=== PATIENT | female | born 1960 | race Caucasian/White ===

== ENCOUNTER 2020-02-15 10:02 | Outpatient (CLI) | payer MEDICARE, SELFPAY ==
--- NOTE | ~2020-02-15 | MM_ITS ---
EXAMINATION: MM screening gayathri BI w nayan HISTORY: Screening mammogram TECHNIQUE: Craniocaudal and mediolateral oblique 3-D tomosynthesis images were obtained and synthetic 2-D images were generated. CAD analysis was submitted and interpreted. COMPARISON: No prior mammogram is available for comparison at this institution. BREAST PARENCHYMAL COMPOSITION: There are scattered areas of fibroglandular density. FINDINGS: There is no evidence of suspicious mass, calcification, or architectural distortion to sugg est malignancy in either breast. IMPRESSION: 1. No mammographic evidence of malignancy. 2. Recommend routine screening mammography in one year. BI-RADS Category 1: Negative Reviewed, dictated and finalized at location A. 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
== END 2020-02-15 10:03 | disposition home or self-care (01) ==
LOC: ANHIMG 10:21
PROVIDERS: PCP Internal Medicine; Visit Provider Obstetrics & Gynecology
DX: Z12.31 Encounter for screening mammogram for malignant neoplasm of breast (principal)
CPT/HCPCS: 77063; 77067

== ENCOUNTER 2021-04-24 00:42 | Day surgery (SDC) | payer MEDICARE, SELFPAY ==
[2021-04-14 14:05] VITALS: BMI 36.8
--- NOTE | 2021-04-23 16:25 | PM.HPGS ---
History of Present Illness History of Present Illness Consent: Risks, benefits, and alternatives have been discussed and questions answered. Patient agrees to proceed with procedure. Chief complaint: neoplasm screening Narrative: [place] Gongora is a 60 year old female referred for colon cancer screening Review of Systems Review of Systems: All systems reviewed & are unremarkable except as noted in HPI and below PMFSH Social History Social History Smoking status: Never smoker Alcohol intake: never Substance use: never Substance use type: does not use Living arrangements: with family Spiritual care concerns: No Meds Home Medications and Allergies Home Medications Medication Instructions Recorded Confirmed Type sod picosulf 10 mg-magnes 3.5 160 ml PO DAILY #320 ml 03/20/21 Rx gram-citric 12 gram/160 mL oral solution atorvastatin 10 mg PO DAILY 04/14/21 04/14/21 History bupropion HCl 300 mg PO DAILY 04/14/21 04/14/21 History calcitriol 0.5 mcg PO DAILY 04/14/21 04/14/21 History ergocalciferol (vitamin D2) 50,000 unit PO [id number] 04/14/21 04/14/21 History levothyroxine 75 mcg PO DAILY 04/14/21 04/14/21 History lisinopril 5 mg PO DAILY 04/14/21 04/14/21 History lorazepam 0.5 mg PO BID PRN 04/14/21 04/14/21 History metformin 500 mg PO TID 04/14/21 04/14/21 History metoprolol succinate 50 mg PO BID 04/14/21 04/14/21 History pantoprazole 40 mg PO DAILY 04/14/21 04/14/21 History paroxetine HCl 20 mg PO DAILY 04/14/21 04/14/21 History pregabalin 150 mg PO TID 04/14/21 04/14/21 History trazodone 100 mg PO DAILY 04/14/21 04/14/21 History Allergies Allergy/AdvReac Type Severity Reaction Status Date / Time amitriptyline Allergy Severe JERKING Verified 04/24/21 09:44 cefaclor Allergy Severe hives Verified 04/24/21 09:44 ibuprofen Allergy Severe ITCHING Verified 04/24/21 09:44 ketamine Allergy Severe JERKING Verified 04/24/21 09:44 midazolam Allergy Severe JERKING Verified 04/24/21 09:44 propofol Allergy Severe JERKING Verified 04/24/21 09:44 pseudoephedrine Allergy Severe ITCHING Verified 04/24/21 09:44 sulfamethoxazole Allergy Severe HIVES Verified 04/24/21 09:44 trimethoprim Allergy Severe HIVES Verified 04/24/21 09:44 Exam Resp: Auscultation: clear to auscultation bilaterally Cardio: Rate: regular rate Rhythm: regular rhythm GI: GI Palp: Yes Soft to palpation and No Tenderness to palpation present (GI) Assessment and Plan Assessment and plan (1) Colon cancer screening: Code(s): Z12.11 - Encounter for screening for malignant neoplasm of colon Status: Acute Assessment and Plan: Colonoscopy with possible biopsy or polypectomy or cautery or injection of substances.
[2021-04-24 09:41] VITALS: BP 144/71; PULSE 59; RESP 20; TEMP 36.4; O2SAT 96
[2021-04-24 10:04] LABS: Glucose Point of Care 190 mg/dl (65-105)
[2021-04-24] MEDS: LACTATED RINGERS 1,000 ML 150 ML IV CONT (10:04)
--- NOTE | 2021-04-24 10:09 | WPDANESEPPF ---
Anes - Initial Pre Proc Eval Procedure: Operation Date: 04/24/21 10:30 Proposed Procedures p Screening Colonoscopy - Dionicio Hernandez MD Date/Time: 04/24/21 10:09 Surgeon: Dionicio Hernandez MD Pre Op Diagnosis: neoplasm screening Patient Data Age: 60 Gender: F Height: 1.68 m Weight: 104.8 kg Last Vital Signs Temp 36.4 C 04/24/21 09:41 Pulse 59 L 04/24/21 09:41 Resp 20 04/24/21 09:41 BP 144/71 H 04/24/21 09:41 Pulse Ox 96 04/24/21 09:41 Allergies Allergy/AdvReac Type Severity Reaction Status Date / Time amitriptyline Allergy Severe JERKING Verified 04/24/21 09:44 cefaclor Allergy Severe hives Verified 04/24/21 09:44 ibuprofen Allergy Severe ITCHING Verified 04/24/21 09:44 ketamine Allergy Severe JERKING Verified 04/24/21 09:44 midazolam Allergy Severe JERKING Verified 04/24/21 09:44 propofol Allergy Severe JERKING Verified 04/24/21 09:44 pseudoephedrine Allergy Severe ITCHING Verified 04/24/21 09:44 sulfamethoxazole Allergy Severe HIVES Verified 04/24/21 09:44 trimethoprim Allergy Severe HIVES Verified 04/24/21 09:44 Home Medications Medication Instructions Recorded Confirmed Type sod picosulf 10 mg-magnes 3.5 160 ml PO DAILY #320 ml 03/20/21 Rx gram-citric 12 gram/160 mL oral solution atorvastatin 10 mg PO DAILY 04/14/21 04/14/21 History bupropion HCl 300 mg PO DAILY 04/14/21 04/14/21 History calcitriol 0.5 mcg PO DAILY 04/14/21 04/14/21 History ergocalciferol (vitamin D2) 50,000 unit PO [id number] 04/14/21 04/14/21 History levothyroxine 75 mcg PO DAILY 04/14/21 04/14/21 History lisinopril 5 mg PO DAILY 04/14/21 04/14/21 History lorazepam 0.5 mg PO BID PRN 04/14/21 04/14/21 History metformin 500 mg PO TID 04/14/21 04/14/21 History metoprolol succinate 50 mg PO BID 04/14/21 04/14/21 History pantoprazole 40 mg PO DAILY 04/14/21 04/14/21 History paroxetine HCl 20 mg PO DAILY 04/14/21 04/14/21 History pregabalin 150 mg PO TID 04/14/21 04/14/21 History trazodone 100 mg PO DAILY 04/14/21 04/14/21 History Laboratory Tests 04/24/21 09:58 POC Capillary Glucose 190 mg/dl H mg/dl (65-105) Patient hx anesthesia problems: other (negative response to ketamine) Family hx anesthesia problems: none Results Review: All pre-operative results and documents have been reviewed as part of the pre-operative evaluation. [facility] Past Medical History Medical History Anxiety Diabetes Fibromyalgia Hypothyroid Social History Social History Smoking status: Never smoker Alcohol intake: never Substance use: never Substance use type: does not use Living arrangements: with family Spiritual care concerns: No Anes - Eval Final PreProcedure Day of Procedure 04/24/21 10:09 Patient weight: obese Heart: regular rate and rhythm Lungs: clear to auscultation Airway: Mallampati scale class II Neurological: alert and oriented Last oral intake: >/= 8 hours ASA classification: III Emergent: no Anesthetic plan: proceed Anesthesia type and monitoring: general GIVS and standard monitoring Results Review: All pre-operative results and documents have been reviewed as part of the pre-operative evaluation. Informed Consent: The patient's anesthetic plan and its attendant risks and benefits were discussed with the patient/family/POA. Questions were solicited and answers provided to the satisfaction of the patient/family/POA.
[2021-04-24 10:47] VITALS: BP 119/61; PULSE 60; RESP 19; O2SAT 95
[2021-04-24 10:57] VITALS: BP 90/67; PULSE 60; RESP 21; O2SAT 96
[2021-04-24 11:07] VITALS: BP 129/69; PULSE 60; RESP 17; O2SAT 94
== END 2021-04-24 11:37 | disposition home or self-care (01) ==
PROVIDERS: PCP Internal Medicine; Visit Provider Internal Medicine Gastroenterology
PROC: 0DJD8ZZ Inspection of Lower Intestinal Tract, Via Natural or Artificial Opening Endoscopic (ICD-10-PCS; CPT 45378; principal; 2021-04-24 10:30)
DX: Z12.11 Encounter for screening for malignant neoplasm of colon (principal); K63.3 Ulcer of intestine; K50.00 Crohn's disease of small intestine without complications; K52.9 Noninfective gastroenteritis and colitis, unspecified; Z98.0 Intestinal bypass and anastomosis status; Z90.49 Acquired absence of other specified parts of digestive tract; E11.9 Type 2 diabetes mellitus without complications; E03.9 Hypothyroidism, unspecified; M79.7 Fibromyalgia; F41.9 Anxiety disorder, unspecified; Z79.84 Long term (current) use of oral hypoglycemic drugs; E66.9 Obesity, unspecified; Z68.37 Body mass index [BMI] 37.0-37.9, adult
CPT/HCPCS: 45380; 82948; 88305; J2704; J7120

== ENCOUNTER 2021-10-19 14:13 | Outpatient (CLI) | payer MEDICARE, SELFPAY ==
--- NOTE | ~2021-10-19 | MM_ITS ---
EXAMINATION: MM screening gayathri BI w nayan HISTORY: Screening TECHNIQUE: Craniocaudal and mediolateral oblique 3-D tomosynthesis images were obtained and synthetic 2-D images were generated. CAD analysis was submitted and interpreted. COMPARISON: 02/15/2020 BREAST PARENCHYMAL COMPOSITION: Breast composed of scattered areas of fibroglandular density FINDINGS: There is no evidence of suspicious mass, calcification, or architectural distortion to sugg est malignancy in either breast. There has been no suspicious interval change. IMPRESSION: 1. No mammographic evidence of malignancy. 2. Recommend routine screening mammography in one year. BI-RADS Category 1: Negative Reviewed, dictated and finalized at location A.
== END 2021-10-19 14:14 | disposition home or self-care (01) ==
LOC: ANHIMG 14:17
PROVIDERS: PCP Internal Medicine; Visit Provider Obstetrics & Gynecology
DX: Z12.31 Encounter for screening mammogram for malignant neoplasm of breast (principal)
CPT/HCPCS: 77063; 77067

== ENCOUNTER 2022-07-14 17:57 | Emergency (ER) | payer MEDICARE, SELFPAY ==
--- NOTE | ~2022-07-14 | XR_ITS ---
EXAMINATION: XR humerus LT DATE: 07/14/2022 18:33 INDICATION: Lifting injury with pain at the mid left upper arm TECHNIQUE: AP and lateral views of the left humerus were obtained. COMPARISON: None. FINDINGS: Alignment is normal. No fracture. Mild osteoarthritis at the left acromioclavicular, glenohumeral and elbow joints. Partially visualized likely cardiac pacemaker leads projecting over the left axilla. S oft tissues are unremarkable. IMPRESSION: 1. 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 No acute osseous abnormality. Reviewed, dictated and finalized at location A. IMPRESSION: 1. 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 No acute o sseous abnormality.
[2022-07-14 18:14] VITALS: BP 155/77; PULSE 61; RESP 18; TEMP 37; O2SAT 100
--- NOTE | 2022-07-14 18:20 | ED.UPPEXIN ---
HPI - Extremity Injury (Upper) General Chief Complaint: Extremity Injury, Upper Stated Complaint: Left Arm Pain Time Seen by Provider: 07/14/22 18:21 Source: patient Mode of arrival: ambulatory Limitations: no limitations History of Present Illness HPI narrative: [place] is a 62-year-old female patient presenting to the clinic today with complaints of left arm pain/injury. She reports she was lifting a mattress/ bed frame yesterday afternoon and felt a pop in her left arm. She reports pain over the radial side of the humerus and the pain is radiating to her elbow. She reports that she is also feeling popping with range of motion of the humerus and shoulder. Denies any shoulder pain specifically or clavicle pain. Related Data Home Medications Medication Instructions Recorded Confirmed atorvastatin 10 mg tablet 10 mg PO DAILY 04/14/21 07/14/22 bupropion HCl 300 mg 24 hr tablet, 300 mg PO DAILY 04/14/21 07/14/22 extended release calcitriol 0.25 mcg capsule 0.5 mcg PO DAILY 04/14/21 07/14/22 ergocalciferol (vitamin D2) 1,250 50,000 unit PO [id number] 04/14/21 07/14/22 mcg (50,000 unit) capsule levothyroxine 75 mcg tablet 75 mcg PO DAILY 04/14/21 07/14/22 lisinopril 5 mg tablet 5 mg PO DAILY 04/14/21 07/14/22 lorazepam 0.5 mg tablet 0.5 mg PO BID PRN Agitation 04/14/21 07/14/22 metformin 500 mg tablet 500 mg PO TID 04/14/21 07/14/22 metoprolol succinate 50 mg 50 mg PO BID 04/14/21 07/14/22 tablet,extended release 24 hr pantoprazole 40 mg tablet,delayed 40 mg PO DAILY 04/14/21 07/14/22 release paroxetine HCl 20 mg tablet 20 mg PO DAILY 04/14/21 07/14/22 pregabalin 150 mg capsule 150 mg PO TID 04/14/21 07/14/22 trazodone 100 mg tablet 100 mg PO DAILY 04/14/21 07/14/22 dapagliflozin 5 mg tablet (Farxiga) 5 mg PO DAILY 07/14/22 07/14/22 fluticasone propionate 50 2 spray intranasal DAILY 07/14/22 07/14/22 mcg/actuation nasal spray,suspension ropinirole 0.5 mg tablet 150 mg PO DAILY 07/14/22 07/14/22 Allergies Allergy/AdvReac Type Severity Reaction Status Date / Time amitriptyline Allergy Severe JERKING Verified 07/14/22 18:01 cefaclor Allergy Severe hives Verified 07/14/22 18:01 ibuprofen Allergy Severe ITCHING Verified 07/14/22 18:01 ketamine Allergy Severe JERKING Verified 07/14/22 18:01 midazolam Allergy Severe JERKING Verified 07/14/22 18:01 propofol Allergy Severe JERKING Verified 07/14/22 18:01 pseudoephedrine Allergy Severe ITCHING Verified 07/14/22 18:01 sulfamethoxazole Allergy Severe HIVES Verified 07/14/22 18:01 trimethoprim Allergy Severe HIVES Verified 07/14/22 18:01 Review of Systems Review of Systems: Pertinent positives per HPI. Patient denies any fever, chills, rash, headache, visual changes, dizziness, cough, runny nose, sore throat, shortness of breath, chest pain, palpitations, nausea, vomiting, diarrhea, constipation, abdominal pain, or any urinary issues. [facility] Past Medical History Medical History Anxiety Diabetes Fibromyalgia Hypothyroid Social History Social History Smoking status: Never smoker Alcohol intake: never Substance use: never Substance use type: does not use Living arrangements: with family Spiritual care concerns: No Comments At the time of my signature, I reviewed and agree with the nursing past medical, surgical, social, and family history. There is no relevant family history pertinent to the patient complaint. Exam Narrative: General: Well-developed, well nourished, in no apparent distress Head: Normocephalic, atraumatic. Cardio: Regular rate and rhythm, s1 and s2 normal, no murmur appreciated. Resp: Clear to auscultation bilaterally, no rhonchi, rales, wheezing or rubs. Musculoskeletal: No deformity, tender to palpation over the left biceps brachia/tendon with pain radiating into the elbow, grossly normal range of motion, no i
== END 2022-07-14 18:55 | disposition home or self-care (01) ==
PROVIDERS: Emergency Provider Nurse Practitioner Family; PCP Internal Medicine
DX: S46.212A Strain of muscle, fascia and tendon of other parts of biceps, left arm, initial encounter (principal); X50.0XXA Overexertion from strenuous movement or load, initial encounter; E11.9 Type 2 diabetes mellitus without complications; M79.7 Fibromyalgia; E03.9 Hypothyroidism, unspecified; F41.9 Anxiety disorder, unspecified
CPT/HCPCS: 73060; 99213; G0463

== ENCOUNTER 2023-05-18 09:19 | Outpatient (CLI) | payer MEDICARE, SELFPAY ==
--- NOTE | ~2023-05-18 | MM_ITS ---
EXAMINATION: MM screening gayathri BI w nayan HISTORY: Screening TECHNIQUE: Craniocaudal and mediolateral oblique 3-D tomosynthesis images were obtained and synthetic 2-D images were generated. CAD analysis was submitted and interpreted. COMPARISON: Comparison to multiple prior studies sequentially, with oldest reviewed study dated 01/28. BREAST PARENCHYMAL COMPOSITION: Not dense: There are scattered areas of fibroglandular density. FINDINGS: There is no evidence of suspicious mass, calcification, or architectural distortion to sugg est malignancy in either breast. There has been no suspicious interval change. IMPRESSION: 1. No mammographic evidence of malignancy. 2. Recommend routine screening mammography in one year. BI-RADS CATEGORY 1 - NEGATIVE Reviewed, dictated and finalized at location A.
== END 2023-05-18 09:20 | disposition home or self-care (01) ==
LOC: ANHIMG 09:29
PROVIDERS: PCP Internal Medicine; Visit Provider Obstetrics & Gynecology
DX: Z12.31 Encounter for screening mammogram for malignant neoplasm of breast (principal)
CPT/HCPCS: 77063; 77067

== ENCOUNTER 2024-09-14 10:06 | Outpatient (CLI) | payer MEDICARE, SELFPAY ==
--- NOTE | ~2024-09-14 | MM_ITS ---
EXAMINATION: MM screening gayathri BI w nayan HISTORY: Screening TECHNIQUE: Craniocaudal and mediolateral oblique 3-D tomosynthesis images were obtained and synthetic 2-D images were generated. CAD analysis was submitted and interpreted. COMPARISON: Comparison to multiple prior studies sequentially, with oldest reviewed study dated 01/28. BREAST PARENCHYMAL COMPOSITION: Not dense: There are scattered areas of fibroglandular density. FINDINGS: There is no evidence of suspicious mass, calcification, or architectural distortion to sugg est malignancy in either breast. There has been no suspicious interval change. IMPRESSION: 1. No mammographic evidence of malignancy. 2. Recommend routine screening mammography in one year. BI-RADS Category 1: Negative Reviewed, dictated and finalized at location B.
--- OUTSIDE RECORDS SUMMARY | 2024-09-14 10:11 | XMS_ITS | Clinical Summary ---
Author Organization [facility] Address [address] [place] [address] Care Team Providers Care Performance Improvement Manager Name Role Phone Richy Nur MD Primary Care Provider [phone] Source Comments [facility],non-owned Affiliates and Associated Physician Practices is amultiple site organization consisting of ambulatory clinics and hospital sitesin [place], [place], [place] and [place]. This disclosure is being madepursuant to the Care Everywhere program and may not contain all information available regarding this patient. Last updated 17.[facility] Allergies Active Allergy Reactions Criticality Noted Date Comments Amitriptyline Other 08/30/2019 Shaking Cefaclor Urticaria Medium 08/30/2019 MD Jennifer moserd use of ceftriaxone - Miguel A Hummel.PharmD 03-08-19 Ketamine Other 08/30/2019 thrashing Sulfamethoxazole Urticaria Medium 08/30/2019 Sulfamethoxazole W-Trimethoprim Rash Medium 08/30/2019 Vancomycin Urticaria Medium 08/30/2019 Medications * Be aware that medications may not be up to date on this document. Alwaysverify current medications with the patient. atorvastatin (LIPITOR) 10 MG tablet 10 mg 4 Active buPROPion XL 24hr (WELLBUTRIN-XL) 300 MG tablet Take 300 mg by mouth once daily Active calcitriol (ROCALTROL) 0.25 MCG capsule Take 0.25 mcg by mouth once daily 9 Active fluticasone propionate (FLONASE) 50 MCG/ACT nasal spray spray 2 spray by intranasal route 2 times every day in each nostril 4 Active levothyroxine (SYNTHROID) 50 MCG tablet 50 mcg 4 Active lisinopril (PRINIVIL; ZESTRIL) 2.5 MG tablet Take 2.5 mg by mouth once daily 9 Active LORazepam (ATIVAN) 0.5 MG tablet Take 0.5 mg by mouth Active metFORMIN (GLUCOPHAGE) 500 MG tablet 500 mg 4 Active metoclopramide (REGLAN) 10 MG tablet Take 10 mg by mouth Active metoprolol tartrate (LOPRESSOR) 50 MG tablet Take 50 mg by mouth 2 times daily Active pantoprazole EC (PROTONIX) 40 MG tablet Take 40 mg by mouth once daily Active PARoxetine (PAXIL) 20 MG tablet Take 20 mg by mouth once daily Active pregabalin (LYRICA) 150 MG capsule 150 mg 4 Active Exenatide (BYDUREON SC) Active tiZANidine (ZANAFLEX) 4 MG tablet Take 1 tablet by mouth every 8 hours as needed for Muscle Spasms 10 tablet 0 Active Social History Tobacco Use Types Packs/Day Years Used Date Smoking Tobacco: Never Smokeless Tobacco: Never Alcohol Use Standard Drinks/Week Comments Never 0 (1 standard drink = 0.6 oz pur e alcohol) AUDIT-C Answer Date Recorded Q1: How often do you have a drink containing alc ohol? 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 Gender Identity Not on file Sexual Orientation Not on file Last Filed Vital Signs Vital Sign Reading Time Taken Comments Blood Pressure 149/97 08/30/2019 12:54 PM CDT Pulse 66 08/30/2019 12:54 PM CDT Temperature 36.6 C (97.8 F) 08/30/2019 12:54 PM CDT Respiratory Rate 16 08/30/2019 12:54 PM CDT Oxygen Saturation 97% 08/30/2019 12:54 PM CDT Inhaled Oxygen Concentration - - Weight - - Height - - Body Mass Index - - Plan of Treatment Health Maintenance Due Date Last Done Comments COLOGUARD (AGES 45-75) - COL ON CA SCREENING 1960 COLON MONITORING 1960 COLONOSCOPY - COLON CA SCREENING 1960 CT COLONOGRAPHY - COLON CA SCREENING 1960 Colorectal Cancer Screening 1960 FIT - COLON CA SCREENING 1960 FLEX SIG - COLON CA SCREENING 1960 MAMMOGRAM 1960 HIV SCREENING 07/04/1975 HEPATITIS C SCREENING 06/29/1978 DTAP/TDAP/TD VACCINES (1 - Tdap) 07/04/1979 PNEUMOCOCCAL VACCINE 50+ (1 of 1 - PCV) 2010 ZOSTER VACCINE (1 of 2) 2010 COVID-19 VACCINE (1 - 2023-2 5 season) 2023 DEPRESSION SCREENING 02/29/2024 INFLUENZA VACCINE (#1) 2024 Respiratory Syncytial Virus (RSV) Vaccine Pt: or over 60 yrs (1 - 1-dose 75+ series) 07/04/2035 HEPATITIS B VACCINE Aged Out No longe r eligible based on patient's age to complete this topic HIB VACCINE Aged Out No longer eligi ble based on patient's age to complete this topic HPV VACCINE Aged Out No longer eligi ble based on patient's age to complete this topic MENINGOCOCCAL (Group B) VACC INE SHARED DECISION-MAKING Aged Out No longer eligibl e based on patient's age to complete this topic MENINGOCOCCAL GROUPS A/C/Y/W VACCINE Aged Out No longer eligible b ased on patient's age to complete [place] [address] MEDICARE ADVANTAGE GENERIC AETNA Care Teams Performance Improvement Manager Relationship Specialty Start Date End Date Richy Nur MD PCP - General Internal Medicine 08/30/19
--- OUTSIDE RECORDS SUMMARY | 2024-09-14 10:11 | XMS_ITS ---
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 [address] [place] [address] 05/02/2024 Raciel Oh Chronic kidney disea se, stage 3a N18.31 ; Essential (primary) hypertension I10 ; Obesity, unspecified E66.9 ; Other proteinuria R80.8 ; Type 2 diabetes mellitus with hyperglycemia E11.65 ; Secondary hyperparathyroidism, not elsewhere classified E21.1 ; Renal osteodystrophy N25.0 ; 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 ; Klebsiella pneumoniae [K. pneumoniae] as the cause of diseases classified elsewhere B96.1 ; Restless legs syndrome G25.81 and Abnormal results of thyroid function studies R94.6 Assessments Encounter Date Diagnosis (ICD Code) Assessment Notes Treatment Notes Treatment Clinical Notes Section Notes 05/02/2024 Chronic kidney disease, stage 3a (ICD-10 - N18.31) 05/02/2024 Essential (primary) hypertension (ICD-10 - I10) 05/02/2024 Obesity, unspecified (ICD-10 - E66.9) 05/02/2024 Other proteinuria (ICD-10 - R80.8) 05/02/2024 Type 2 diabetes mellitus with hyperglycemia (ICD-10 - E11.65) 05/02/2024 Secondary hyperparathyroidism , not elsewhere classified (ICD-10 - E21.1) 05/02/2024 Renal osteodystrophy (ICD-10 - N25.0) 05/02/2024 Myoclonus (ICD-10 - G25.3) 05/02/2024 Klebsiella pneumoniae [K. pneumoniae] as the cause of diseases classified elsewhere (ICD-10 - B96.1) 05/02/2024 Restless legs syndrome (ICD-10 - G25.81) 05/02/2024 Abnormal results of thyroid function studies (ICD-10 - R94.6) Plan Of Treatment Next Appt Details Provider Name:Raciel Adriano , 10/31/2024 02:00:00 PM, [address] [facility], [facility] [address], [place], [address], Progress Notes * CHAU MONTEOB:1960 ( 64 yo F)Acc No.[id number]:05/02/2024 Progress Notes Patient: CHAIM AL Provider: Marcell MACKAY MD, F.A.C.P, F.A.S.N. :1960 A ge:63 Y S ex:Female Date:05/02/2024 Address:[address] [place] [address] Subjective: * Chief Complaints: * * Medical History: Objective: * Vitals: Assessment: * Assessment: 1. C hronic kidney disease, stage 3a - N18.31 (Primary) 2 . E ssential (primary) hypertension - I10 3 . O besity, unspecified - E66.9 4 .?Other proteinuria - R80.8 5 . T ype 2 diabetes mellitus with hyperglycemia - E11.65 6 . S econdary hyperparathyroidism, not elsewhere classified - E21.1? 7. R enal osteodystrophy - N25.0 8 . M yoclonus - G25.3 ? 9 . K lebsiella pneumoniae [K. pneumoniae] as the cause of diseases classified elsewhere - B96.1 1 0. R estless legs syndrome - G25.81 1 1. A bnormal results of thyroid function studies - R94.6 Plan: * Treatment: * Billing Information: * Visit Code: 20158 Office Visit, Est Pt., Level 4. * Procedure Codes: * Electronic signature of Prudencio Oh MD on 09/14/2024 at 10:11 AM CDT Sign off status: Pending * Provider: Marcell MACKAY MD, F.A.C.P, F.A.S.N. Date: 0 05/02/2024 Generated for Printing/Faxing/eTransmitting on: 0 09/14/2024 10:11 AM CDT
--- OUTSIDE RECORDS SUMMARY | 2024-09-14 10:11 | XMS_ITS ---
Author Organization [facility] [employer] Address [address] [facility] [facility] [address] [place] [address] Care Team Providers Care Sea Air Land Officer Name Role Phone Boom MORGAN, Richy Primary Care Provider Unavailab Shamir Buenrostro Unavailable [phone] REASON FOR VISIT Follow Up; PT is sick Social History Sex Assigned At : Social History Observation Description Sex Assigned At Female Encounters Encounter Location Date Provider Diagnosis [facility] [employer] [place] [id number] [facility] [address] [place] [address] 06/01/2024 Shamir Rivera Plan Of Treatment Next Appt Details Provider Name:Shamir Rivera , 09/17/2024 03:45:00 PM, [address], [facility] [address], [place], [address], Progress Notes * CHAIM MONTE LDOB:1960 (64 yo F)Acc No.[id number]:06/01/2024 Patient: MARTINE ALERROL Baez Provider: Patrizia RIVERA MD :1960 A ge:63 Y S ex:Female Date:06/01/2024 Address:[facility] [id number] Pcp:Richy Nur MD Subjective: * Chief Complaints: * 1 . Follow Up; PT is sick. 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
--- OUTSIDE RECORDS SUMMARY | 2024-09-14 10:12 | XMS_ITS | Referral Summary ---
Author Organization [facility] [address] [facility] Address [address] [place] [address] Care Team Providers Care Chip Crusher Operator Name Role Phone Richy Nur MD Primary Care Provider [phone] Jack Craig MD, [place] P. Unavailable [phone] Encounters Date Type Department Care Team Description 09/06/2024 Telephone [facility] Orthopaedic Surgery [address] 1st [address] [place] [address] Anatoly Barragan MD 08/23/2024 Telephone [facility] Gastroenterology [address] [facility] 12th [place] [address] [place] [address] Mignon Gonzalez CMA Gi Pre Procedural Assessment 08/22/2024 2:44 PM CDT Anesthesia Event [facility] Digestive Disease [place] [id number] [facility] [address] [place] [phone] Alo Guerrero MD 08/22/2024 3:30 PM CDT - 08/22/2024 4:00 PM CDT Surgery [facility] Digestive Disease [address] [place] [address] Champ Galvin MD ESOPHAGOGASTRODUODE NOSCOPY/DW/TS 08/22/2024 1:19 PM CDT - 08/22/2024 3:30 PM CDT Hospital Encounter [facility] Digestive Disease [address] [place] [address] Champ Galvin MD Discharge Disposition: Discharge to home or self care 08/20/2024 Telephone [facility] Specialty Services [address] [place] [address] Rebecca Arias RN 08/20/2024 Orders Only [facility] [address] [facility] [address] [place] [phone] Richy Nur MD Stomach pain (Primary Dx) 08/16/2024 4:00 PM CDT Office Visit [facility] Orthopaedic Surgery [address] [facility] 1st Floor [address] [place] [address] Anatoly Barragan MD Rotator cuff tear arthropathy of right shoulder (Primary Dx); Right shoulder pain, unspecified chronicity from Last 3 Months Allergies Active Allergy Reactions Criticality Noted Date Comments Amitriptyline Other (See comments) Low 03/20/2018 causes jerking Shaking Cefaclor Hives,Urticaria Medium 10/11/2007 MD Jennifer gonzalez use of ceftriaxone - Choco IzquierdoPharmD 03-08-19 MD Jennifer gonzalez use of ceftriaxone - Choco IzquierdoPharmD 03-08-19 Dayquil Sinus Pressure/Pain Itching Low 03/20/2018 Ketamine Other (See comments) Low 03/20/2018 Causes jerking movements thrashing Naproxen Rash Medium 10/11/2007 Pseudoephedrine Sulfa (Sulfonamide Antibiotics) Rash Medium 10/11/2007 Sulfamethoxazole Hives,Urticaria Medium 08/30/2019 Sulfamethoxazole-Trimetho prim Rash Medium 10/11/2007 Trimethoprim Vancomycin Hives,Urticaria Medium 08/30/2019 Medications ergocalciferol (VITAMIN D) 50,000 unit capsule Take 1 capsule (50,000 Units total) by mouth once a week Active buPROPion XL (WELLBUTRIN XL) 300 mg 24 hr tablet Take 1 tablet (300 mg total) by mouth every morning 90 tablet 1 04/08/19 22 Active calcitRIOL (ROCALTROL) 0.25 mcg capsule 05/05/19 22 Active fluticasone propionate (FLONASE) 50 mcg/actuation nasal spray INSTILL 2 SPRAYS INTO EACH NOSTRIL ONCE DAILY NEEDED FOR ALLERGIES 16 mL 1 10/30/19 23 Active venlafaxine XR (EFFEXOR-XR) 75 mg 24 hr capsule Take by mouth daily 05/20/19 24 Active LORazepam (ATIVAN) 0.5 mg tablet TAKE 1 TABLET BY MOUTH TWICE A DAY 30 tablet 08/29/19 24 Active Additional Information Patient not taking.Reported on 03/06/2024 lisinopriL (PRINIVIL,ZEST RIL) 5 mg tablet TAKE 1 TABLET BY MOUTH EVERY DAY 90 tablet 2 09/30/19 24 Active ferrous sulfate ER 324 mg (65 mg iron) EC tablet Take 65 mg by mouth Active cyanocobalamin (Vitamin B-12) 1,000 mcg tablet Take 1 tablet (1,000 mcg total) by mouth 3 (three) times a day Active melatonin tablet Take by mouth Active brexpiprazole (Rexulti) 0.5 mg tablet daily Active fluconazole (DIFLUCAN) 200 mg tablet 12/20/19 24 Active clonazePAM (KlonoPIN) 0.5 mg tablet Take 1 tablet (0.5 mg total) by mouth nightly 30 tablet 5 05/15/19 25 025 Active atorvastatin (LIPITOR) 10 mg tablet Take 1 tablet (10 mg total) by mouth daily 90 tablet 3 05/19/19 25 Active rOPINIRole (REQUIP) 1 mg tablet Take 1 tablet (1 mg total) by mouth nightly at bedtime. 28 tablet 3 07/12/19 25 Active pregabalin (LYRICA) 150 mg capsule Take 1 capsule (150 mg total) by mouth 3 (three) times a day 270 capsule 07/12/19 25 Active sodium bicarbonate 650 mg tablet Take 1 tablet (650 mg total) by mouth 2 (two) times a day 180 tablet 1 07/12/19 25 Active metFORMIN (GLUCOPHAGE) 500 mg tablet Take 2 tablets (1,000 mg total) by mouth 2 (two) times a day with meals 360 tablet 3 07/12/19 25 Active levothyroxine (SYNTHROID) 75 mcg tablet Take 1 tablet (75 mcg total) by mouth daily 90 tablet 2 08/09/19 25 Active metoprolol XL (TOPROL-XL) 50 mg extended release tablet Take 1 tablet (50 mg total) by mouth 2 (two) times a day 180 tablet 2 08/09/[address] (PROTONIX) 40 mg EC tablet Take 1 tablet (40 mg total) by mouth 2 (two) times a day 180 tablet 08/23/19 25 025 Active sodium, potassium & mag sulfates (Suprep Bowel Prep Kit) 17.5-3.13-1.6 gram recon solnIndication s:Bowel Evacuation MIX AND DRINK INSTRUCTED FOR BOWEL PREP 354 mL 08/24/19 25 Active semaglutide (OZEMPIC) 1 mg/dose (4 mg/3 mL) pen injector injection Inject 1 mg under the skin every 7 days 3 mL 09/05/19 25 Active cyclobenzaprin e (FLEXERIL) 5 mg tablet Take 1 tablet (5 mg total) by mouth nightly at bedtime. 28 tablet 09/12/19 25 Active semaglutide (OZEMPIC) 1 mg/dose (4 mg/3 mL) pen injector injection Inject 1 mg under the skin every 7 days 3 mL 07/19/19 25 025 Discontinued(R eorder) pantoprazole DR (PROTONIX) 40 mg EC tablet Take 1 tablet (40 mg total) by mouth daily 90 tablet 2 08/09/19 25 025 Discontinued cyclobenzaprin e (FLEXERIL) 5 mg tablet Take 1 tablet (5 mg total) by mouth nightly at bedtime. 28 tablet 08/09/19 25 025 Discontinued(R eorder) Active Problems Problem Noted Date Diagnosed Date Stomach pain 08/20/2024 Rotator cuff tear arthropathy of right shoulder 08/16/2024 Crohn's colitis, other complication 03/06/2024 Dizziness 06/07/2023 INNA (obstructive sleep apnea) 04/20/2023 Myoclonus 01/27/2023 Assessment & Plan (10/18/2023 12:33 PM CDT): Plan is to taper her Lyrica. Will begin was 75 t.i.d.. She is to let me know in 2 weeks how she is feeling and we can slowly proceed after that Chest pain 11/30/2022 Depression 07/15/2020 Overview (07/15/2020): Continue medication is doing counseling as well Fibromyalgia 03/08/2019 Assessment & Plan (03/09/2019 2:48 PM SHIPFITTER HELPER): Home regimen of Wellbutrin 300 mg qday, Paxil 20 mg qday, Lyrica 150 mg TID, and PRN hydrocordone-acetaminophen -Holding Wellbutrin and paxil while on Linezolid due to risk of serotonin syndrome, will resume once off antibiotic. - of note she reports she is on these for fibro and hx major depression - mood has been good until acute illness Assessment & Plan (03/08/2019 1:26 PM SHIPFITTER HELPER): Home regimen of Wellbutrin 300 mg qday, Paxil 20 mg qday, Lyrica 150 mg TID, and PRN hydrocordone-acetaminophen -Holding Wellbutrin and paxil while on Linezolid due to risk of serotonin syndrome, will resume once off antibiotic. Assessment & Plan (03/08/2019 1:29 AM SHIPFITTER HELPER): Home regimen of Wellbutrin 300 mg qday, Paxil 20 mg qday, Lyrica 150 mg TID, and PRN hydrocordone-acetaminophen -Holding Wellbutrin and paxil while on Linezolid due to risk of serotonin syndrome, will resume once off antibiotic Hyponatremia 03/08/2019 Assessment & Plan (03/11/2019 11:14 AM SHIPFITTER HELPER): - Mild hyponatremia of 133 in the setting of hyperglycemia, corrected Na is normal at 135. CTM - improved Assessment & Plan (03/10/2019 2:04 PM SHIPFITTER HELPER): - Mild hyponatremia of 133 in the setting of hyperglycemia, corrected Na is normal at 135. CTM - improved Assessment & Plan (03/09/2019 2:47 PM SHIPFITTER HELPER): - Mild hyponatremia of 133 in the setting of hyperglycemia, corrected Na is normal at 135. CTM - will obtain BMP tonight Assessment & Plan (03/08/2019 1:26 PM SHIPFITTER HELPER): Mild hyponatremia of 133 in the setting of hyperglycemia, corrected Na is normal at 135. CTM Assessment & Plan (03/08/2019 1:30 AM SHIPFITTER HELPER): Mild hyponatremia of 133 in the setting of hyperglycemia, corrected Na is normal at 135 Acute pyelonephritis 03/08/2019 Assessment & Plan (03/11/2019 11:14 AM SHIPFITTER HELPER): - delayed improvement, fever curve improved and resolved, symptomatically improved - plan d/c home to complete 10 days total therapy with cipro - suspect viral component that led to fevers with delayed improvement given stable clinically and labs - f/u Dr. Nur as outpt Assessment & Plan (03/10/2019 2:04 PM SHIPFITTER HELPER): - delayed improvement, fever curve improving, and symptomatically improving - likely pyelo but suspect may have viral component on top of pyelo given high fevers to 104 and delayed improvement, nl WBC - given delayed improvement performed renal US to r/o developing renal abscess but negative - will cont IV linezolid/meropenem for now, likely deescalate tomorrow if continued improvement - suspect cx not growing 2/2 prior exposure to macrobid - PRN tylenol for fevers - no other focal symptoms pointing to other etiology of fever - if fevers persist may consider CT chest to eval for noninfectious etiology but overall seems to be improving and clinically stable so will hold off for now as expect them to go away soon Assessment & Plan (03/09/2019 2:46 PM SHIPFITTER HELPER): - delayed improvement but afebrile thus far today, fever curve improving, and symptomatically improving - likely all pyelo - given delayed improvement performed renal US to r/o developing renal abscess but negative - will cont IV linezolid/meropenem for now, likely deescalate tomorrow if continued improvement - suspect cx not growing 2/2 prior exposure to macrobid-Additional infectious work-up with blood cultures pending, RVP neg and - PRN tylenol for fevers - no other focal symptoms pointing to other etiology of fever Assessment & Plan (03/08/2019 1:30 PM SHIPFITTER HELPER): Presenting with severe fevers to 39.8 C, rigors, increased urinary urgency and dysuria concerning for upper urinary tract infection. Symptoms first began 5 days prior to admission and progressively worsened. She was seen by PCP on 03/06/2019 & prescribed Macrobid, which she took for [address] hours with [address] abdomen/pelvis with mild righ perinephric stranding, which can be seen in setting of upper UTI. -Urine culture pending -Additional infectious work-up with blood cultures pending, RVP neg and CXR normal -continue Meropenem and Linezolid (Vancomycin allergy) to cover ESBL and MRSA given overall clinical picture and severity of fever - PRN tylenol for fevers Assessment & Plan (03/08/2019 1:29 AM SHIPFITTER HELPER): Presenting with severe fevers to 39.8 C, rigors, increased urinary urgency and dysuria concerning for upper urinary tract infection. Symptoms first began 5 days prior to admission and progressively worsened. She was seen by PCP on 03/06/2019 & prescribed Macrobid, which she took for 24 hours with no improvement -CT abdomen/pelvis with mild righ perinephric stranding, which can be seen in setting of upper UTI -UA here with 2+ protein, 2+ glucose, 2+ blood, 11-20 WBC, 3-5 RBC, and trace bacteria. No nitrites or LE, however did take oral Macrobid prior to admission -Urine culture pending -Additional infectious work-up with blood cultures, RVP and CXR -S/p one dose of CTX in ED and will broaden to Meropenem and Linezolid (Vancomycin allergy) to cover ESBL and MRSA given overall clinical picture and severity of fever -Will give one time dose of Ibuprofen for fevers (mild CKD so cautious with NSAIDs) and continue PRN tylenol Kidney lesion, wrangell, left 03/08/2019 Assessment & Plan (03/08/2019 1:32 PM SHIPFITTER HELPER): CT scan with small indeterminate density lesion in left kidney, likely benign hyperdense cyst -Recommended to correlate with non-urgent renal US, defer to outpatient Assessment & Plan (03/08/2019 1:31 AM SHIPFITTER HELPER): CT scan with small indeterminate density lesion in left kidney, likely benign hyperdense cyst -Recommended to correlate with non-urgent renal US, defer to outpatient Chronic kidney disease (CKD) stage G3a/A1, moderately decreased glomerular filtration rate (GFR) between 45-59 mL/min/1.73 square meter and albuminuria creatinine ratio less than 30 mg/g 03/08/2019 Assessment & Plan (05/05/2021 3:14 PM SHIPFITTER HELPER): Labs per renal. Assessment & Plan (03/09/2019 2:48 PM SHIPFITTER HELPER): - stage 3, Cr at baseline 1.1-1.3 Assessment & Plan (03/08/2019 1:25 PM SHIPFITTER HELPER): Mild CKD stage 3 at baseline, Cr 1.0-1.20 -Cr 1.18 now 1.31. renally dose meds - continue IVF, repeat bmp am labs Assessment & Plan (03/08/2019 1:33 AM SHIPFITTER HELPER): Mild CKD stage 3 at baseline, Cr 1.0-1.20 -Cr 1.18 on admission, renally dose meds Nontraumatic complete tear of right rotator cuff 2018 Overview (2018): Added automatically from request for surgery [id number] Bradycardia 07/02/2013 Overview (06/02/2016): Bradycardia Hyperlipidemia 07/02/2013 Overview (06/04/2016): Hyperlipidemia Assessment & Plan (05/05/2021 3:12 PM SHIPFITTER HELPER): LDL at goal. Keep an eye on the TG's; consider Vascepa if still elevated. Assessment & Plan (03/08/2019 1:28 PM SHIPFITTER HELPER): Continue home atorvastatin 10 mg qday Assessment & Plan (03/08/2019 1:29 AM SHIPFITTER HELPER): Continue home atorvastatin 10 mg qday Presence of cardiac pacemaker 07/02/2013 Overview (02/23/2023): Pacemaker Crohn's disease ([facility]/HCC) 07/02/2013 Overview (06/04/2016): Crohns disease Assessment & Plan (06/05/2024 2:24 PM CDT): Stable at this time Assessment & Plan (03/10/2019 2:04 PM SHIPFITTER HELPER): - reports chronic loose stools from Crohns (on no meds), unlikely etiology of acute illness/fever - f/u GI as outpt Assessment & Plan (03/09/2019 2:47 PM SHIPFITTER HELPER): - reports chronic loose stools from Crohns (on no meds), unlikely etiology of acute illness/fever - f/u GI as outpt Assessment & Plan (03/08/2019 1:28 PM SHIPFITTER HELPER): Bowel movements at baseline, does not take any medications currently for Crohn's. No melena, BRB or current abdominal pain. -CTM Assessment & Plan (03/08/2019 1:26 AM SHIPFITTER HELPER): Bowel movements at baseline, does not take any medications currently for Crohn's -CTM Essential hypertension 07/02/2013 Overview (06/04/2016): Hypertension Assessment & Plan (06/05/2024 2:24 PM CDT): BP at target Assessment & Plan (05/05/2021 3:13 PM SHIPFITTER HELPER): At goal on current therapy. Assessment & Plan (03/08/2019 1:27 PM SHIPFITTER HELPER): Hold lisinopril 2.5 mg qday with elevating Cr - continue metoprolol 50 mg BID Assessment & Plan (03/08/2019 1:29 AM SHIPFITTER HELPER): Continue home lisinopril 2.5 mg qday and metoprolol 50 mg BID Palpitations 10/12/2007 Obesity 10/11/2007 Overview (02/23/2023): Obesity Diabetes mellitus 10/11/2007 Overview (02/23/2023): Diabetes Assessment & Plan (06/05/2024 2:24 PM CDT): Doing better. Continue semaglutide. Will not increase dose due to nausea. Assessment & Plan (07/16/2021 6:00 PM CDT): A1c remains above goal - 7.9% today. Will increase metformin to 1000 mg BID. eGFR 47 on recent check, so ok based on renal function. Continue Farxiga. Will see her back in 4 months; if A1c still above 7%, then will add another medication (likely GLP1a) Assessment & Plan (05/05/2021 3:14 PM SHIPFITTER HELPER): A1c above goal. Add Farxiga to current regimen of metformin for glycemic and renal benefit. Explained possible side effects, including UTI's and yeast infections. Check BMP in 2 weeks after starting Farxiga. She will call to schedule an eye exam with her juice mixer. Assessment & Plan (03/11/2019 11:14 AM SHIPFITTER HELPER): Home regimen of Metformin 500 mg TID and was previously on insulin - Holding metformin while inpatient. - continue low dose Lantus 5 units qday and low dose SSI. - QID accuchecks and diabetic diet - d/c back on home regimen Assessment & Plan (03/10/2019 2:04 PM SHIPFITTER HELPER): Home regimen of Metformin 500 mg TID and was previously on insulin - Holding metformin while inpatient. - continue low dose Lantus 5 units qday and low dose SSI. - QID accuchecks and diabetic diet Assessment & Plan (03/09/2019 2:47 PM SHIPFITTER HELPER): Home regimen of Metformin 500 mg TID and was previously on insulin - Holding metformin while inpatient. - continue low dose Lantus 5 units qday and low dose SSI. - QID accuchecks and diabetic diet Assessment & Plan (03/08/2019 1:26 PM SHIPFITTER HELPER): Home regimen of Metformin 500 mg TID and was previously on insulin - Holding metformin while inpatient. - continue low dose Lantus 5 units qday and low dose SSI. - QID accuchecks and diabetic diet Assessment & Plan (03/08/2019 1:27 AM SHIPFITTER HELPER): Home regimen of Metformin 500 mg TID and was previously on insulin -Holding metformin while inpatient. Will start low dose Lantus 5 units qday and low dose SSI -QID accuchecks and diabetic diet Sick sinus syndrome 10/11/2007 Immunizations Immunization Administration Dates Next Due Influenza, Quadrivalent, Genia l Culture-based MDCK, Antibiotic Free, Intramuscular 03/06/2018,03/06/2018 Influenza, Quadrivalent, Genia l Culture-based MDCK, Preservative Free, Antibiotic Free, Intramuscular 12/02/2019 Influenza, Quadrivalent, Spl it, Preservative Free, Intramuscular 02/18/2015,02/18/2015 Influenza, Trivalent, IM (MDV) 02/04/2014,2013 Pfizer SARS-CoV-2 Monovalent Vaccination (12+ Yrs) PURPLE 11/28/2020 Tdap 06/24/2013,06/24/2013 ZOSTER Recombinant 06/29/2022 Zoster, unspecified 10/29/2022 Social History Tobacco Use Types Packs/Day Years Used Date Smoking Tobacco: Never Smokeless Tobacco: Never Tobacco Cessation:Counseling Given: Not Answered Alcohol Use Standard Drinks/Week Comments No 0 (1 standard drink = 0.6 oz pur e alcohol) AUDIT-C Answer Date Recorded Q1: How often do you have a drink containing alc ohol? Never 08/22/2024 Average Number of Drinks Not on file 025 Frequency of Binge Drinking Not on file 07/30 Personal Safety Answer Date Recorded Have you ever been in or are you currently in a harmful physical or emotional relationship or is someone making you feel afraid or unsafe? Denies 08/22/2024 Comments No Sex and Gender Information Value Date Recorded Sex Assigned at Not on file Legal Sex Female 1:59 AM SHIPFITTER HELPER Gender Identity Not on file Sexual Orientation Straight 07/09/2020 2: 51 PM CDT Occupation Industry Job Start Date Job End Date retired Not on file Not on file Not on file Last Filed Vital Signs Vital Sign Reading Time Taken Comments Blood Pressure 99/62 08/22/2024 3:24 PM CDT Pulse 60 08/22/2024 3:24 PM CDT Temperature 36.1 C (97 F) 08/22/2024 3:04 PM CDT Respiratory Rate 16 08/22/2024 3:04 PM CDT Oxygen Saturation 96% 08/22/2024 3:24 PM CDT Inhaled Oxygen Concentration - - Weight 102.1 kg (225 lb) 08/22/2024 2:05 PM CDT Height 170.7 cm (5' 7.2) 08/22/2024 2:05 PM CDT Body Mass Index 35.03 08/22/2024 2:05 PM CDT Plan of Treatment Upcoming Encounters Date Type Department Care Team (Late st Contact Info) Description 11/02/2024 8:00 AM CDT Hospital Encounter [facility] Endoscopy at [facility] Advanced Medicine [address] [place] [phone] Giovanni Martin MD [address] [address] 11/02/2024 8:00 AM CDT - 11/02/2024 9:00 AM CDT Surgery [facility] Endoscopy at [facility] [address] [place] [phone] Giovanni Martin MD [address] [address] COLONOSCOPY 11/07/2024 8:30 AM CDT Hospital Encounter [facility] Operating Room [address] [place] [phone] Anatoly Barragan MD [address] [place] [address] 11/07/2024 8:30 AM CDT - 11/07/2024 10:50 AM CDT Surgery [facility] Operating Room [address] [place] [id number] Anatoly Barragan MD [address] [place] [address] RIGHT REVERSE TOTAL SHOULDER ARTHROPLASTY Scheduled Procedures Name Priority Associated Diagnoses Date/Ti me COLONOSCOPY Crohn's colitis, other complication (HCC) 11/02/2024 8:00 AM CDT ESOPHAGOGASTRODUODENOSCOPY Crohn's colitis, other complication (HCC) 11/02/2024 8:00 AM CDT ARTHROPLASTY SHOULDER - REVE RSE TOTAL Rotator cuff tear arthropathy of right shoulder 11/07/2024 8:30 AM CDT COLONOSCOPY Open Access Crohn's colitis, other complication (HCC) Medical Devices Implanted Type Area Accountant Assistant Device Identifier Shelf Expiration Date Model / Serial / Lot [employer] C.R.M. L301 Accolade Latitude Nxt Pacesafe Easyview 4.45x5.02cm 2 Chamber Is1 - [id number] Implanted:Qty: 1 on 03/20/2018 by Mo Santiago Jr., MD at [facility] C.R.M. 11/02/2018 L301 / / [employer] Ar-2324 Bcm Swivelock 4.75mm 24.5mm Self Punch Vent Shoulder [place] Suture - [id number] Implanted:Qty: 1 on 08/07/2018 by Mando Griffith MD at [facility] [employer] [id number] 03/30/2020 [id number] M / / [id number] Procedures Procedure Name Priority Date/Time Associated Diagnosis Comments EGD 08/22/2024 2:47 PM CDT ESOPHAGOGASTRODUODENOSCOPY Open Access 08/22 2:43 PM CDT Stomach pain POCT GLUCOSE DEVICE Routine 08/22/2024 2:10 PM CDT POCT HEMOGLOBIN A1C Routine 06/05/2024 1:36 PM CDT Type 2 diabetes mellitus without complication, without long-term current use of insulin (HCC) POCT LIPID PANEL Routine 10/18/2023 12:01 PM CDT Mixed hyperlipidemia COMPREHENSIVE METABOLIC PANEL Routine 4:17 PM CDT Type 2 diabetes mellitus without complication, without long-term current use of insulin (HCC) Visit for screening mammogram Mixed hyperlipidemia Crohn's disease without complication, unspecified gastrointestinal tract location (HCC) Essential hypertension GERD without esophagitis Hypothyroidism, unspecified type SCREENING MAMMOGRAM 2D BILATERAL Schedule Routine, Read Routine (OP Routine) 03/15/2020 from Last 3 Months or Most Recently Relevant to Health Maintenance Results * EGD (08/22/2024 2:47 PM CDT) Anatomical Region Laterality Modality Other Narrative Procedure Note Champ Galvin MD - 08/22/2024 2:47 PM CDT [facility] Patient Name: India Gongora Procedure Date: 08/22/2024 2:47 PM Date of : 1960 Admit Type: Outpatient Age: 64 Gender: Female Attending MD: Champ Sierra M.D. Room: [facility] ENDOSCOPY ROOM 9 Note Status: Finalized Procedure: Upper GI endoscopy Indications: Dysphagia and heart burn. History of Crohn'sdisease noted. The patient needs a new IBD provider. Referring MD: Richy Nur M.D. Providers: Champ Sierra M.D. Medicines: Monitored Anesthesia Care Complications: No immediate complications. Estimated Blood Loss: Estimated blood loss: none. Procedure: Pre-Anesthesia Assessment: - The risks and benefits of the procedure and the sedation options and risks were discussed with the patient. All questions were answered and informed consent was obtained. - Immediately prior to administration ofmedications, the patient was re-assessed for adequacy to receive sedatives. The benefits, risks, and alternatives to theprocedure and sedation were discussed and informed consentwas obtained. The scope was passed under direct vision. The GIF [id number] endoscope was introduced through the mouth, and advanced to the second partof duodenum. The upper GI endoscopy was accomplished without difficulty. The patient tolerated the procedure well. Findings: LA Grade C (one or more mucosal breaks continuous between tops of 2or more mucosal folds, less than 75% circumference) esophagitis wasfound in the lower third of the esophagus. A large amount of food (residue) was found in the gastric body. Examination of the stomach was limited due to these findings. The examined duodenum was normal. Impression: - LA Grade C reflux esophagitis was found, whichcould explain dysphagia and symptoms of retrosternalburning. - Limited examination of the foregut otherwise dueto large amount of food (residue) in the stomach. Recommendation: - Increase pantoprazole 40 mg to twice daily (upfrom once daily). - Repeat EGD with on of my partners in 3 months to confirm healing of esophagitis following treatment. Please transition to a liquid diet the day prior to next endoscopy. - Recommend same day colonoscopy (along with EGD)in 3 months, given she is due for routine evaulation for Crohn's disease. - Establish in the IBD clinic in 3-4 months withfor ongoing cares. - Follow-up with your referring provider (indicatedin the report above) as indicated. - In the unusual situation that you developabdominal pain, bleeding or other significant problems in the days following this procedure please call my officeat [phone] to speak to my nurse. After hours and evenings please call [phone] and speak to theGI fellow welder apprentice combination. Please tell them that Generedid your procedure and that your were instructed tohave the fellow call me or the physician covering for meto discuss the management of your condition. If youhave an urgent problem, [facility] and have the ER doctor call my office duringthe day or [facility] transfer ([phone]) center afterhours and weekends to arrange admission or transfer toour facility. - The outlined recommendations within this reportwere discussed with you following the procedure. Attending Participation: I personally performed the entire procedure. Electronically signed by Champ Sierra MD Champ Sierra M.D. 08/22/2024 3:09:43 PM . Number of Addenda: 0 Note Initiated On: 08/22/2024 2:47 PM Champ Sierra MD ENDOSCOPY PROCEDURES Edited Result - Final * POCT glucose (08/22/2024 2:10 PM CDT) Glucose, POC 101 70 - 199 mg/dL Blood 08/22/2024 2:10 PM CDT 08/22/2024 2:10 PM CDT us Champ Sierra MD LAB POCT ORDERABLES - DEVICE Final Result [facility] Department [place] [address] * (ABNORMAL) POCT hemoglobin A1c (06/05/2024 1:36 PM CDT) Pathologist [facility] Hemoglobin A1C, POC 6.7 4.0 - 5.6 % Blood 06/05/2024 1:36 PM CDT us Richy Nur MD POINT OF CARE TEST ORDERABLES Final Result * POCT lipid panel (10/18/2023 12:01 PM CDT) Pathologist [facility] Cholesterol, POC 176 mg/dL HDL, POC 42 mg/dL Triglycerides, POC 312 mg/dL LDL Cholesterol POC 71 mg/dL Non-HDL Cholesterol, POC 134 mg/dL Cholesterol Total, POC 176 mg/dL Capillary blood 10/18/2023 1 2:01 PM CDT us Richy Nur MD POINT OF CARE TEST ORDERABLES Final Result * (ABNORMAL) Comprehensive metabolic panel (07/16/2021 4:17 PM CDT) Pathologist [facility] Glucose 131(H) 65 - 99 mg/dL [facility] - 01 BUN 16 8 - 27 mg/dL [facility] - 01 Creatinine, Serum 1.56(H) 0.57 - 1.00 mg/dL [facility] - 01 eGFR 38(L) >59 mL/min/1.7 3 [facility] - 01 BUN/creat ratio 10(L) 12 - 28 [facility] - 01 Sodium 138 134 - 144 mmol/L [facility] - 01 Potassium, sr 4.2 3.5 - 5.2 mmol/L [facility] - 01 Chloride 102 96 - 106 mmol/L [facility] - 01 CO2 18(L) 20 - 29 mmol/L [facility] - 01 Calcium 9.9 8.7 - 10.3 mg/dL [facility] - 01 Protein, sr 7.6 6.0 - 8.5 g/dL [facility] - 01 Albumin 4.4 3.8 - 4.8 g/dL [facility] - 01 Globulin, Total 3.2 1.5 - 4.5 g/dL [facility] - 01 A/G Ratio 1.4 1.2 - 2.2 [facility] - 01 Bilirubin, Total 0.5 0.0 - 1.2 mg/dL [facility] - 01 Alk phos 45 44 - 121 IU/L [facility] - 01 AST 28 0 - 40 IU/L [facility] - 01 ALT 25 0 - 32 IU/L [facility] - 01 Blood specimen (specimen) 07/16/2021 4:17 PM CDT 07/16/2021 Narrative [facility] - 07/17/2021 10:10 AM CDT Performed at: 01 - [facility] [address] [id number] Paintless Dent Repair Technician: Luis Saucedo PhD, Phone: [phone] Richy Nur MD LAB BLOOD ORDERABLES Final Re sult [facility] - 01 * Screening Mammogram 2D Bilateral (03/15/2020) Anatomical Region Laterality Modality Breast Bilateral Mammography Narrative 03/15/2020 03/15/20 at [facility] Historical Provider IMG MAMMO PROCEDURES Fidelina l Result from Last 3 Months or Most Recently Relevant to Health Maintenance Insurance [facility] REF AETNA MEDICARE GOLD AETNA MEDICARE GOLD AETNA MEDICARE GOLD Advance Directives For more information, please contact: [phone] * Full Code (Latest Code Status on File) Date Activated Date Inactivated Comments 08/22/2024 2:03 PM 08/22/2024 7:40 PM * Full Code Date Activated Date Inactivated Comments 03/08/2019 2:26 AM 03/11/2019 7:59 PM Care Teams Chip Crusher Operator Relationship Specialty Start Date End Date Richy Nur MD PCP - General 07/02/13 Mo Santiago Jr., MD [address] [place] [address] Consulting Physician Cardiovascular Disease 01/27/23
--- OUTSIDE RECORDS SUMMARY | 2024-09-14 10:12 | XMS_ITS | Patient Health Record ---
Author Organization [facility] Address [address] [place] [address] Care Team Providers Care Airplane Technician Name Role Phone Raciel Oh Unavailable [phone] Reason For Referral No Information Medications Medication SIG (Take, Route, Frequency, Duration) Notes Start Date End Date Status Calcitriol 0.25 MCG TAKE 1 CAPSULE BY MO UTH EVERY DAY; Duration: 90 Active Lisinopril 5 MG 1 tablet Orally Once a day; Duration: 90 day(s) 07/28/2021 Active Sodium Bicarbonate 650 MG TAKE 2 TABLETS BY MOUTH TWICE A DAY FOR 90 DAYS; Duration: 90 Active rOPINIRole HCl 0.5 MG TAKE 1 TABLET BY M OUTH EVERYDAY AT BEDTIME; Duration: 90 Active Vitamin D (Ergocalciferol) 1.25 MG (88133 UT) TAKE 1 CAPSULE BY MOUTH ONE TIME PER WEEK FOR 30 DAYS; Duration: 90 Active Problems Problem Type SNOMED Code ICD Code Onset Dates Problem Status W/U Status Risk Notes Problem Hyperglycemia due to type 2 diabetes mellitus (356960251440034) Type 2 diabetes mellitus with hyperglycemia (E11.65) Active confirmed Problem Secondary hyperparathyroidism (63937005) Secondary hyperparathyroid ism, not elsewhere classified (E21.1) Active confirmed Problem Obesity (775443180) Obesity, unspecified (E66.9) Active confirmed Problem 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 Problem Restless legs syndrome (82942782) Restless legs syndrome (G25.81) Active confirmed Problem Essential hypertension (14785377) Essential (primary) hypertension (I10) Active confirmed Problem Renal osteodystrophy (67364061) Renal osteodystrophy (N25.0) Active confirmed Problem Proteinuria (11073143) Other proteinuria (R80.8) Active confirmed Problem Chronic kidney disease stage 3B (disorder) (019517077) Chronic kidney disease, stage 3b (N18.32) Active confirmed Encounters Encounter Location Date Provider Diagnosis [facility] [address] [place] [address] 11/18/2023 Raciel Oh [facility] [address] [place] [address] 01/11/2024 Raciel Oh Chronic kidney disea se, stage 3a N18.31 ; Essential (primary) hypertension I10 ; Obesity, unspecified E66.9 ; Other proteinuria R80.8 ; Type 2 diabetes mellitus with hyperglycemia E11.65 ; Secondary hyperparathyroidism, not elsewhere classified E21.1 and Renal osteodystrophy N25.0 [facility] [address] [place] [address] 05/02/2024 Raciel Oh Chronic kidney disea se, [...] Abnormal results of thyroid function studies R94.6 [facility] [address] [place] [address] 08/01/2024 Raciel Oh Chronic kidney disea se, stage 3b N18.32 ; Essential (primary) hypertension I10 ; Obesity, unspecified E66.9 ; Other proteinuria R80.8 ; Type 2 diabetes mellitus with hyperglycemia E11.65 ; Secondary hyperparathyroidism, not elsewhere classified E21.1 ; Renal osteodystrophy N25.0 ; 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 ; Restless legs syndrome G25.81 and Abnormal results of liver function studies R94.5 [facility] [address] [place] [address] 05/21/2024 Raciel Oh [facility] [address] [place] [address] 05/23/2024 Raciel Oh Assessments Encounter Date Diagnosis (ICD Code) Assessment Notes Treatment Notes Treatment Clinical Notes Section Notes 01/11/2024 Chronic kidney disease, stage 3a (ICD-10 - N18.31) 05/02/2024 Essential (primary) hypertension (ICD-10 - I10) 05/02/2024 Chronic kidney disease, stage 3a (ICD-10 - N18.31) 08/01/2024 Essential (primary) hypertension (ICD-10 - I10) 08/01/2024 Chronic kidney disease, stage 3b (ICD-10 - N18.32) 08/01/2024 Obesity, unspecified (ICD-10 - E66.9) 05/02/2024 Obesity, unspecified (ICD-10 - E66.9) 01/11/2024 Essential (primary) hypertension (ICD-10 - I10) 01/11/2024 Obesity, unspecified (ICD-10 - E66.9) 05/02/2024 Other proteinuria (ICD-10 - R80.8) 08/01/2024 Other proteinuria (ICD-10 - R80.8) 08/01/2024 Type 2 diabetes mellitus with hyperglycemia (ICD-10 - E11.65) 05/02/2024 Type 2 diabetes mellitus with hyperglycemia (ICD-10 - E11.65) 01/11/2024 Other proteinuria (ICD-10 - R80.8) 01/11/2024 Type 2 diabetes mellitus with hyperglycemia (ICD-10 - E11.65) 05/02/2024 Secondary hyperparathyroidism , not elsewhere classified (ICD-10 - E21.1) 08/01/2024 Secondary hyperparathyroidism , not elsewhere classified (ICD-10 - E21.1) 08/01/2024 Renal osteodystrophy (ICD-10 - N25.0) 05/02/2024 Renal osteodystrophy (ICD-10 - N25.0) 01/11/2024 Secondary hyperparathyroidism , not elsewhere classified (ICD-10 - E21.1) 01/11/2024 Renal osteodystrophy (ICD-10 - N25.0) 05/02/2024 Myoclonus (ICD-10 - G25.3) 08/01/2024 Myoclonus (ICD-10 - G25.3) 08/01/2024 Restless legs syndrome (ICD-10 - G25.81) 05/02/2024 Klebsiella pneumoniae [K. pneumoniae] as the cause of diseases classified elsewhere (ICD-10 - B96.1) 05/02/2024 Restless legs syndrome (ICD-10 - G25.81) 08/01/2024 Abnormal results of liver function studies (ICD-10 - R94.5) 05/02/2024 Abnormal results of thyroid function studies (ICD-10 - R94.6) Plan Of Treatment Pending Test Test Name Order Date ALBUMIN, RANDOM URINE W/CREATININE (6517 ) 06/09/2022 SODIUM WITH CREATININE, RANDOM URINE (85 14) 06/09/2022 PTH, INTACT AND CALCIUM (8837) CHLORIDE WITH CREATININE, RANDOM URINE ( 1645) 06/09/2022 COMPREHENSIVE METABOLIC PANEL (32899) POTASSIUM W/O CREATININE, RANDOM URINE ( 00272) 06/09/2022 PROTEIN, TOTAL W/CREAT, RANDOM URINE (17 15) 06/09/2022 CBC (INCLUDES DIFF/PLT) (6399) 3 URINALYSIS, COMPLETE W/REFLEX TO CULTURE (3020) 06/09/2022 OSMOLALITY (U) (678) 06/09/2022 TSH (899) 06/09/2022 VITAMIN D,25-OH,TOTAL,IA (59441) 023 REFLEXIVE URINE CULTURE 06/09/2022 Next Appt Details Provider Name:Raciel Adriano , 10/31/2024 02:00:00 PM, [address] [facility], [facility] [address], [place], [address],
--- OUTSIDE RECORDS SUMMARY | 2024-09-14 10:12 | XMS_ITS | Patient Health Record ---
Author Organization 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 Name Role Phone Richy Nur MD Primary Care Provider UnavailShamir Curiel Unavailable [phone] Allergies Allergen (clinical drug ingredient) Drug/Non Drug Allergy documented on EMR Reaction Allergy Type Onset Date Status cefaclor CECLOR (uncoded) Unknown Allergy 04/08/2023 Ac tive DAYQUIL SINUS PRESSURE/PAIN (uncoded) Unknown Allergy 04/08/2023 Active Septra Unknown Drug Allergy 04/08/2023 Active amitriptyline Amitriptyline Unknown Drug Allergy Active ketamine Ketamine Unknown Drug Allergy 04/08/2023 Active vancomycin Vancomycin Unknown Drug Allergy 04/08/2023 Acti ve Reason For Referral Reason TMS Diagnosis 1 Major depressive dis order, recurrent severe without psychotic features (F33.2) Referred Organization [facility] Adjacent Applications Referred Provider Shamir Kendall Referred Address [address] ,[facility] [address],[place], [place],[address], Referral Priority Routine Medications Medication SIG (Take, Route, Frequency, Duration) Notes Start Date End Date Status clonazePAM 0.5 MG TAKE 1 TABLET BY MOUTH NIGHTLY Oral; Duration: 30 Days monoclonus spasm Active Pregabalin 75 MG 1 capsule Orally Once a day Active Lisinopril 5 MG TAKE 1 TABLET BY MOUTH EVERY DAY Oral; Duration: 90 Days Active Cyclobenzaprine HCl 5 MG TAKE 1 TABLET BY MOUTH EVERY DAY AT NIGHT Oral; Duration: 30 Days Active Calcitriol 0.25 MCG Oral 05/20/2023 Active Ergocalciferol 1.25 MG (67873 UT) Oral 05/20/2023 Active rOPINIRole HCl 1 MG 1 tablet at bedtime Oral Once a day 05/20/2023 Active Atorvastatin Calcium 10 MG Oral 05/20/2023 Active Venlafaxine HCl ER 75 mg TAKE 1 CAPSULE BY MOUTH IN THE MORNING; Duration: 28 Active Metoprolol Succinate ER 50 MG Oral 05/20/2023 Active metFORMIN HCl 500 MG Oral 05/20/2023 Active Rexulti 0.5 mg TAKE 1 TABLET BY MOUTH DAILY; Duration: 28 Active Jardiance 10 MG TAKE 1 TABLET BY MOUTH EVERY DAY Oral; Duration: 30 Days Active Levothyroxine Sodium 75 MCG 1 tablet in the morning on an empty stomach Oral Once a day 05/20/2023 Active Ozempic (0.25 or 0.5 MG/DOSE) 2 MG/3ML Subcutaneous; Duration: 28 Days Active buPROPion HCl ER (XL) 300 MG 1 tablet in the morning Orally Once a day; Duration: 28 days Active Immunizations Vaccine Route Administration Date Status Comme nts Tdap Unknown 06/24/2013 Administered Pf[employer] Covid-19 Vac cine 1st dose Unknown 11/28/2020 Administered Pfizer [employer] Covid-19 Vac cine 2nd dose Unknown 04/29/2020 Administered Pfizer [employer] Covid-19 Vac cine 2nd dose Unknown 05/20/2020 Administered Novel [id number], preservative free Unknown 02/18/2015 Administered Influenza, seasonal, injecta ble, preservative free, 3 yrs and above Unknown 02/04/2014 Administered Influenza, quadrivalent, spl it, preservative free, 3 years or older Unknown 02/18/2015 Administered Influenza, injectable, MDCK, preservative free Unknown 03/06/2018 Administered Influenza (split), 3 yrs and above Unknown 02/04/2014 A dministered Social History Tobacco Use: Social History Observation Description Date Details (start date - stop date) Never Smoker NA - NA Sex Assigned At : Social History Observation Description Sex Assigned At Female Tobacco Control (Standard) Question Answer Notes Tobacco use: Nonsmoker Problems Problem Type SNOMED Code ICD Code Onset Dates Problem Status W/U Status Risk Notes Problem Severe recurrent major depression without psychotic features (32465265) Major depressive disorder, recurrent severe without psychotic features (F33.2) Active confirmed Problem Generalized anxiety disorder (58833920) Generalized anxiety disorder (F41.1) Active confirmed Problem Obstructive sleep apnea syndrome (40362601) INNA (obstructive sleep apnea) (G47.33) 4 Active confirmed Problem 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 Problem Chronic kidney disease stage 3A (disorder) (646752200) Chronic kidney disease (CKD) stage G3a/A1, moderately decreased glomerular filtration rate (GFR) between 45-59 mL/min/1.73 square meter and albuminuria creatinine ratio less than 30 mg/g (N18.31) 0 Active confirmed Problem Bradycardia (33703875) Bradycardia (R00.1) 4 Active confirmed Vital Signs Heart Rate 67 /min 06/11/2024 Height-cm 167.64 cm 06/11/2024 Blood pressure diastolic 77 mm Hg 06/11/2024 Weight-kg 100.7 kg 06/11/2024 Height 66.00 in 06/11/2024 Blood pressure systolic 123 mm Hg 06/11/2024 Weight 222 lbs 06/11/2024 BMI 35.83 kg/m2 06/11/2024 Encounters Encounter Location Date Provider Diagnosis [employer] [address] [facility] [address] [place] [address] 11/07/2023 Shamir Kendall Generalized anxiety disorder F41.1 ; INNA (obstructive sleep apnea) G47.33 ; Major depressive disorder, recurrent severe without psychotic features F33.2 ; Propriospinal myoclonus G25.3 ; Chronic kidney disease (CKD) stage G3a/A1, moderately decreased glomerular filtration rate (GFR) between 45-59 mL/min/1.73 square meter and albuminuria creatinine ratio less than 30 mg/g N18.31 and Bradycardia R00.1 [employer] [address] [facility] [address] [place] [address] 12/05/2023 Shamir Enoch Generalized anxiety disorder F41.1 ; INNA (obstructive sleep apnea) G47.33 ; Major depressive disorder, recurrent severe without psychotic features F33.2 ; Propriospinal myoclonus G25.3 ; Chronic kidney disease (CKD) stage G3a/A1, moderately decreased glomerular filtration rate (GFR) between 45-59 mL/min/1.73 square meter and albuminuria creatinine ratio less than 30 mg/g N18.[address] [facility] [id number] [address] 01/02/2024 Shamir Enoch Generalized anxiety disorder F41.1 ; INNA (obstructive sleep apnea) G47.33 ; Major depressive disorder, recurrent severe without psychotic features F33.2 ; Propriospinal myoclonus G25.3 ; Chronic kidney disease (CKD) stage G3a/A1, moderately decreased glomerular filtration rate (GFR) between 45-59 mL/min/1.73 square meter and albuminuria creatinine ratio less than 30 mg/g N18.[address] [facility] [employer] [address] 06/11/2024 Shamir Enoch Generalized anxiety disorder F41.1 ; Encounter for screening for cardiovascular disorders Z13.6 ; Encounter for screening for depression Z13.31 ; INNA (obstructive sleep apnea) G47.33 ; Major depressive disorder, recurrent severe without psychotic features F33.2 ; Propriospinal myoclonus G25.3 ; Chronic kidney disease (CKD) stage G3a/A1, moderately decreased glomerular filtration rate (GFR) between 45-59 mL/min/1.73 square meter and albuminuria creatinine ratio less than 30 mg/g N18.[address] [facility] [employer] [address] [address] 03/16/[address] [facility] [employer], [address] [address] 03/22/[address] [facility] [employer], [address] [address] 05/15/2024 Shamir Enoch Major depressive disorder, recurrent severe without psychotic features F33.2 [facility] [employer] [address] [address] 12/27/[address] [facility] [employer], [address] [address] 02/17/2024 Shamir Enoch Major depressive disorder, recurrent severe without psychotic features F33.2 Assessments Encounter Date Diagnosis (ICD Code) Assessment Notes Treatment Notes Treatment Clinical Notes Section Notes 11/07/2023 Generalized anxiety disorder (ICD-10 - F41.1) Major Depressive Disorder - Assessment: Patient reports worsening depression since reducing Lyrica dose. Current medications are Venlafaxine 75 mg and Bupropion 300 mg. PHQ-9 score is 18 (severe depression). Patient has failed Paxil and Trazodone in the past. Depression has definitely increased over the past 2.5 weeks. Patient previously tried TMS in 2018 or 2019 with some benefit. - Plan: Consider augmenting with a different medication without changing Venlafaxine and Bupropion while patient decides how to come off Lyrica. Re-evaluate in one month. If depression is still severe, consider TMS as a treatment option. Anxiety - Assessment: Patient reports increased anxiety since reducing Lyrica dose and with the prospect of frequent TMS visits. - Plan: Address anxiety in conjunction with depression treatment. Monitor response to medication adjustments and consider TMS if necessary. Fibromyalgia - Assessment: Patient has been on Lyrica for 20 years for fibromyalgia pain management. Patient reports increased pain since reducing Lyrica dose. - Plan: Discuss the risks and benefits of continuing or tapering off Lyrica. If patient decides to come off Lyrica, taper the dose slowly to minimize side effects and prevent symptom recurrence. Myoclonus - Assessment: Patient reports no improvement in myoclonus despite taking melatonin, magnesium, restless leg medication, muscle relaxer, lorazepam, and Klonopin. Myoclonus affects sleep and causes anxiety about going to bed. - Plan: Review patient's medications for potential interactions contributing to myoclonus. Consider alternative treatments or medication adjustments to address myoclonus. Weight Gain - Assessment: Patient reports gaining 12 pounds in three months since starting Klonopin. Patient reports increased appetite. - Plan: Monitor weight and consider adjusting medications if weight gain continues or becomes a concern for the patient. ADHD - Assessment: Patient inquires about the potential contribution of ADHD to depression and anxiety. Patient is not taking prescribed ADHD medication due to cost. - Plan: Assess patient for ADHD symptoms and discuss the potential benefits and risks of treating ADHD in conjunction with depression and anxiety management. Blood Pressure - Assessment: Patient reports church history teacher took them off blood pressure medication due to low blood pressure, but blood pressure was elevated today. Patient is on Toprol for heart flutters. - Plan: Monitor blood pressure and communicate with the patient's church history teacher to ensure appropriate management of blood pressure and potential medication interactions. 12/05/2023 Generalized anxiety disorder (ICD-10 - F41.1) Depression - Assessment: Patient reports improvement in depressive symptoms with the use of Rexulti. PHQ-9 score has decreased to 10, indicating a shift from severe to mild-moderate depression. - Plan: - Continue Rexulti at the current dose. - Provide additional samples for the patient and send a prescription to [facility]. - Reassess in 4 weeks or sooner if symptoms worsen. Anxiety - Assessment: Patient still experiences some anxiety but acknowledges living in a stressful environment. - Plan: - Monitor anxiety levels during follow-up visits. - Consider adjusting treatment if anxiety worsens or interferes with daily functioning. Sleep Disturbance - Assessment: Patient reports difficulty sleeping, with frequent awakenings and restlessness. Sleep issues may be contributing to feelings of exhaustion and pressure in the head. Patient mentions being up at least 10 times during the night and feeling restless. - Plan: - Encourage the patient to try melatonin and theanine combination, as it seemed to help in the past. - Monitor sleep quality during follow-up visits and consider further evaluation or treatment if sleep issues persist. Attention-Defic it/Hyperactivit y Disorder (ADHD) and Obsessive-Compu lsive Disorder (OCD) Traits - Assessment: Patient reports difficulty concentrating and noticing minor details that cause distress. Patient describes OCD-like symptoms, such as being bothered by misaligned objects and leaving tasks undone if they can't be done perfectly. - Plan: - Continue to monitor ADHD and OCD traits during follow-up visits. - Consider further evaluation or treatment if these symptoms interfere with daily functioning or cause significant distress. Shoulder Pain - Assessment: Patient reports shoulder pain, possibly due to torn rotator cuffs. The pain affects sleep and makes it difficult to wear the CPAP mask. - Plan: - Encourage the patient to seek further evaluation for shoulder pain, as it may be contributing to sleep disturbance and overall discomfort. Follow-up - Plan: - Schedule a follow-up appointment in 4 weeks to reassess depression, anxiety, sleep disturbance, ADHD/OCD traits, and shoulder pain. - If the cost of Rexulti is prohibitive, the patient may return for additional samples. - Consider discussing Transcranial Magnetic Stimulation (TMS) as a potential treatment option if depression worsens. 01/02/2024 Generalized anxiety disorder (ICD-10 - F41.1) Insomnia and Sleep Disturbances - Assessment: Patient reports difficulty falling asleep and staying asleep, with recent worsening of symptoms. Currently taking clonazepam, ropinirole, Flexeril, and Lyrica for sleep issues. Patient reports only getting 1-3 hours of sleep some nights and feeling extremely fatigued. - Plan: - Encourage the patient to contact their sleep specialist for a follow-up and discuss medication adjustments. - Consider re-evaluating the use of CPAP. - Address any potential anxiety contributing to sleep disturbances. Anxiety - Assessment: Patient reports feeling anxious and questions whether sleep disturbances are contributing to increased anxiety. Currently taking clonazepam for myoclonus spasm, which also helps with anxiety. Patient experiences jitteriness and incoherence when trying to sleep. - Plan: - Monitor anxiety levels and consider adjusting medications if necessary. - Encourage the patient to discuss their anxiety with their primary care physician and sleep specialist. Depression - Assessment: Patient is currently on Lyrica 75 mg three times a day and reports increased depression when the dose was previously reduced. Also taking venlafaxine 75 mg, bupropion XL 300 mg, and Rexulti 0.5 mg. Patient reports significant improvement in mood with Rexulti. - Plan: - Continue current medications and monitor for any changes in depressive symptoms. - Schedule a follow-up appointment in two months to reassess the patient's mental health status. Medication Management - Assessment: Patient requests a refill of lorazepam and reports improvement in sleep when taking it in combination with other medications. Patient is also using Rexulti samples provided by the clinic. Patient has been experimenting with nighttime medications to isolate which ones are most effective. - Plan: - Refill lorazepam prescription and instruct the patient to discuss its use with their primary care physician. - Refill venlafaxine 75 mg, bupropion XL 300 mg, and Rexulti 0.5 mg for 30 days. - Continue to provide Rexulti samples as needed. Surgical Concerns - Assessment: Patient reports several surgeries are needed but are currently impossible due to inability to lay down and a previous reaction to anesthesia (ketamine). Patient experiences symptoms similar to their previous anesthesia reaction on a daily basis. - Plan: - Encourage the patient to address sleep disturbances and anxiety with their sleep specialist and primary care physician before considering surgery. - Recommend discussing anesthesia concerns with the surgical team to explore alternative options. 02/17/2024 Major depressive disorder, recurrent severe without psychotic features (ICD-10 - F33.2) 05/15/2024 Major depressive disorder, recurrent severe without psychotic features (ICD-10 - F33.2) 06/11/2024 Generalized anxiety disorder (ICD-10 - F41.1) 06/11/2024 Encounter for screening for cardiovascular disorders (ICD-10 - Z13.6) 11/07/2023 Major depressive disorder, recurrent severe without psychotic features (ICD-10 - F33.2) Learning About Depression material was published Major Depressive Disorder - Assessment: Patient reports worsening depression since reducing Lyrica dose. Current medications are Venlafaxine 75 mg and Bupropion 300 mg. PHQ-9 score is 18 (severe depression). Patient has failed Paxil and Trazodone in the past. Depression has definitely increased over the past 2.5 weeks. Patient previously tried TMS in 2018 or 2019 with some benefit. - Plan: Consider augmenting with a different medication without changing Venlafaxine and Bupropion while patient decides how to come off Lyrica. Re-evaluate in one month. If depression is still severe, consider TMS as a treatment option. Anxiety - Assessment: Patient reports increased anxiety since reducing Lyrica dose and with the prospect of frequent TMS visits. - Plan: Address anxiety in conjunction with depression treatment. Monitor response to medication adjustments and consider TMS if necessary. Fibromyalgia - Assessment: Patient has been on Lyrica for 20 years for fibromyalgia pain management. Patient reports increased pain since reducing Lyrica dose. - Plan: Discuss the risks and benefits of continuing or tapering off Lyrica. If patient decides to come off Lyrica, taper the dose slowly to minimize side effects and prevent symptom recurrence. Myoclonus - Assessment: Patient reports no improvement in myoclonus despite taking melatonin, magnesium, restless leg medication, muscle relaxer, lorazepam, and Klonopin. Myoclonus affects sleep and causes anxiety about going to bed. - Plan: Review patient's medications for potential interactions contributing to myoclonus. Consider alternative treatments or medication adjustments to address myoclonus. Weight Gain - Assessment: Patient reports gaining 12 pounds in three months since starting Klonopin. Patient reports increased appetite. - Plan: Monitor weight and consider adjusting medications if weight gain continues or becomes a concern for the patient. ADHD - Assessment: Patient inquires about the potential contribution of ADHD to depression and anxiety. Patient is not taking prescribed ADHD medication due to cost. - Plan: Assess patient for ADHD symptoms and discuss the potential benefits and risks of treating ADHD in conjunction with depression and anxiety management. Blood Pressure - Assessment: Patient reports church history teacher took them off blood pressure medication due to low blood pressure, but blood pressure was elevated today. Patient is on Toprol for heart flutters. - Plan: Monitor blood pressure and communicate with the patient's church history teacher to ensure appropriate management of blood pressure and potential medication interactions. 01/02/2024 INNA (obstructive sleep apnea) (ICD-10 - G47.33) Insomnia and Sleep Disturbances - Assessment: Patient reports difficulty falling asleep and staying asleep, with recent worsening of symptoms. Currently taking clonazepam, ropinirole, Flexeril, and Lyrica for sleep issues. Patient reports only getting 1-3 hours of sleep some nights and feeling extremely fatigued. - Plan: - Encourage the patient to contact their sleep specialist for a follow-up and discuss medication adjustments. - Consider re-evaluating the use of CPAP. - Address any potential anxiety contributing to sleep disturbances. Anxiety - Assessment: Patient reports feeling anxious and questions whether sleep disturbances are contributing to increased anxiety. Currently taking clonazepam for myoclonus spasm, which also helps with anxiety. Patient experiences jitteriness and incoherence when trying to sleep. - Plan: - Monitor anxiety levels and consider adjusting medications if necessary. - Encourage the patient to discuss their anxiety with their primary care physician and sleep specialist. Depression - Assessment: Patient is currently on Lyrica 75 mg three times a day and reports increased depression when the dose was previously reduced. Also taking venlafaxine 75 mg, bupropion XL 300 mg, and Rexulti 0.5 mg. Patient reports significant improvement in mood with Rexulti. - Plan: - Continue current medications and monitor for any changes in depressive symptoms. - Schedule a follow-up appointment in two months to reassess the patient's mental health status. Medication Management - Assessment: Patient requests a refill of lorazepam and reports improvement in sleep when taking it in combination with other medications. Patient is also using Rexulti samples provided by the clinic. Patient has been experimenting with nighttime medications to isolate which ones are most effective. - Plan: - Refill lorazepam prescription and instruct the patient to discuss its use with their primary care physician. - Refill venlafaxine 75 mg, bupropion XL 300 mg, and Rexulti 0.5 mg for 30 days. - Continue to provide Rexulti samples as needed. Surgical Concerns - Assessment: Patient reports several surgeries are needed but are currently impossible due to inability to lay down and a previous reaction to anesthesia (ketamine). Patient experiences symptoms similar to their previous anesthesia reaction on a daily basis. - Plan: - Encourage the patient to address sleep disturbances and anxiety with their sleep specialist and primary care physician before considering surgery. - Recommend discussing anesthesia concerns with the surgical team to explore alternative options. 12/05/2023 INNA (obstructive sleep apnea) (ICD-10 - G47.33) Depression - Assessment: Patient reports improvement in depressive symptoms with the use of Rexulti. PHQ-9 score has decreased to 10, indicating a shift from severe to mild-moderate depression. - Plan: - Continue Rexulti at the current dose. - Provide additional samples for the patient and send a prescription to [facility]. - Reassess in 4 weeks or sooner if symptoms worsen. Anxiety - Assessment: Patient still experiences some anxiety but acknowledges living in a stressful environment. - Plan: - Monitor anxiety levels during follow-up visits. - Consider adjusting treatment if anxiety worsens or interferes with daily functioning. Sleep Disturbance - Assessment: Patient reports difficulty sleeping, with frequent awakenings and restlessness. Sleep issues may be contributing to feelings of exhaustion and pressure in the head. Patient mentions being up at least 10 times during the night and feeling restless. - Plan: - Encourage the patient to try melatonin and theanine combination, as it seemed to help in the past. - Monitor sleep quality during follow-up visits and consider further evaluation or treatment if sleep issues persist. Attention-Defic it/Hyperactivit y Disorder (ADHD) and Obsessive-Compu lsive Disorder (OCD) Traits - Assessment: Patient reports difficulty concentrating and noticing minor details that cause distress. Patient describes OCD-like symptoms, such as being bothered by misaligned objects and leaving tasks undone if they can't be done perfectly. - Plan: - Continue to monitor ADHD and OCD traits during follow-up visits. - Consider further evaluation or treatment if these symptoms interfere with daily functioning or cause significant distress. Shoulder Pain - Assessment: Patient reports shoulder pain, possibly due to torn rotator cuffs. The pain affects sleep and makes it difficult to wear the CPAP mask. - Plan: - Encourage the patient to seek further evaluation for shoulder pain, as it may be contributing to sleep disturbance and overall discomfort. Follow-up - Plan: - Schedule a follow-up appointment in 4 weeks to reassess depression, anxiety, sleep disturbance, ADHD/OCD traits, and shoulder pain. - If the cost of Rexulti is prohibitive, the patient may return for additional samples. - Consider discussing Transcranial Magnetic Stimulation (TMS) as a potential treatment option if depression worsens. 11/07/2023 INNA (obstructive sleep apnea) (ICD-10 - G47.33) Major Depressive Disorder - Assessment: Patient reports worsening depression since reducing Lyrica dose. Current medications are Venlafaxine 75 mg and Bupropion 300 mg. PHQ-9 score is 18 (severe depression). Patient has failed Paxil and Trazodone in the past. Depression has definitely increased over the past 2.5 weeks. Patient previously tried TMS in 2018 or 2019 with some benefit. - Plan: Consider augmenting with a different medication without changing Venlafaxine and Bupropion while patient decides how to come off Lyrica. Re-evaluate in one month. If depression is still severe, consider TMS as a treatment option. Anxiety - Assessment: Patient reports increased anxiety since reducing Lyrica dose and with the prospect of frequent TMS visits. - Plan: Address anxiety in conjunction with depression treatment. Monitor response to medication adjustments and consider TMS if necessary. Fibromyalgia - Assessment: Patient has been on Lyrica for 20 years for fibromyalgia pain management. Patient reports increased pain since reducing Lyrica dose. - Plan: Discuss the risks and benefits of continuing or tapering off Lyrica. If patient decides to come off Lyrica, taper the dose slowly to minimize side effects and prevent symptom recurrence. Myoclonus - Assessment: Patient reports no improvement in myoclonus despite taking melatonin, magnesium, restless leg medication, muscle relaxer, lorazepam, and Klonopin. Myoclonus affects sleep and causes anxiety about going to bed. - Plan: Review patient's medications for potential interactions contributing to myoclonus. Consider alternative treatments or medication adjustments to address myoclonus. Weight Gain - Assessment: Patient reports gaining 12 pounds in three months since starting Klonopin. Patient reports increased appetite. - Plan: Monitor weight and consider adjusting medications if weight gain continues or becomes a concern for the patient. ADHD - Assessment: Patient inquires about the potential contribution of ADHD to depression and anxiety. Patient is not taking prescribed ADHD medication due to cost. - Plan: Assess patient for ADHD symptoms and discuss the potential benefits and risks of treating ADHD in conjunction with depression and anxiety management. Blood Pressure - Assessment: Patient reports church history teacher took them off blood pressure medication due to low blood pressure, but blood pressure was elevated today. Patient is on Toprol for heart flutters. - Plan: Monitor blood pressure and communicate with the patient's church history teacher to ensure appropriate management of blood pressure and potential medication interactions. 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 Current medications are Venlafaxine 75 mg and Bupropion 300 mg. PHQ-9 score is 18 (severe depression). Patient has failed Paxil and Trazodone in the past. Depression has definitely increased over the past 2.5 weeks. Patient previously tried TMS in 2018 or 2019 with some benefit. - Plan: Consider augmenting with a different medication without changing Venlafaxine and Bupropion while patient decides how to come off Lyrica. Re-evaluate in one month. If depression is still severe, consider TMS as a treatment option. Anxiety - Assessment: Patient reports increased anxiety since reducing Lyrica dose and with the prospect of frequent TMS visits. - Plan: Address anxiety in conjunction with depression treatment. Monitor response to medication adjustments and consider TMS if necessary. Fibromyalgia - Assessment: Patient has been on Lyrica for 20 years for fibromyalgia pain management. Patient reports increased pain since reducing Lyrica dose. - Plan: Discuss the risks and benefits of continuing or tapering off Lyrica. If patient decides to come off Lyrica, taper the dose slowly to minimize side effects and prevent symptom recurrence. Myoclonus - Assessment: Patient reports no improvement in myoclonus despite taking melatonin, magnesium, restless leg medication, muscle relaxer, lorazepam, and Klonopin. Myoclonus affects sleep and causes anxiety about going to bed. - Plan: Review patient's medications for potential interactions contributing to myoclonus. Consider alternative treatments or medication adjustments to address myoclonus. Weight Gain - Assessment: Patient reports gaining 12 pounds in three months since starting Klonopin. Patient reports increased appetite. - Plan: Monitor weight and consider adjusting medications if weight gain continues or becomes a concern for the patient. ADHD - Assessment: Patient inquires about the potential contribution of ADHD to depression and anxiety. Patient is not taking prescribed ADHD medication due to cost. - Plan: Assess patient for ADHD symptoms and discuss the potential benefits and risks of treating ADHD in conjunction with depression and anxiety management. Blood Pressure - Assessment: Patient reports church history teacher took them off blood pressure medication due to low blood pressure, but blood pressure was elevated today. Patient is on Toprol for heart flutters. - Plan: Monitor blood pressure and communicate with the patient's church history teacher to ensure appropriate management of blood pressure and potential medication interactions. 12/05/2023 Major depressive disorder, recurrent severe without psychotic features (ICD-10 - F33.2) Learning About Depression material was published Depression - Assessment: Patient reports improvement in depressive symptoms with the use of Rexulti. PHQ-9 score has decreased to 10, indicating a shift from severe to mild-moderate depression. - Plan: - Continue Rexulti at the current dose. - Provide additional samples for the patient and send a prescription to [facility]. - Reassess in 4 weeks or sooner if symptoms worsen. Anxiety - Assessment: Patient still experiences some anxiety but acknowledges living in a stressful environment. - Plan: - Monitor anxiety levels during follow-up visits. - Consider adjusting treatment if anxiety worsens or interferes with daily functioning. Sleep Disturbance - Assessment: Patient reports difficulty sleeping, with frequent awakenings and restlessness. Sleep issues may be contributing to feelings of exhaustion and pressure in the head. Patient mentions being up at least 10 times during the night and feeling restless. - Plan: - Encourage the patient to try melatonin and theanine combination, as it seemed to help in the past. - Monitor sleep quality during follow-up visits and consider further evaluation or treatment if sleep issues persist. Attention-Defic it/Hyperactivit y Disorder (ADHD) and Obsessive-Compu lsive Disorder (OCD) Traits - Assessment: Patient reports difficulty concentrating and noticing minor details that cause distress. Patient describes OCD-like symptoms, such as being bothered by misaligned objects and leaving tasks undone if they can't be done perfectly. - Plan: - Continue to monitor ADHD and OCD traits during follow-up visits. - Consider further evaluation or treatment if these symptoms interfere with daily functioning or cause significant distress. Shoulder Pain - Assessment: Patient reports shoulder pain, possibly due to torn rotator cuffs. The pain affects sleep and makes it difficult to wear the CPAP mask. - Plan: - Encourage the patient to seek further evaluation for shoulder pain, as it may be contributing to sleep disturbance and overall discomfort. Follow-up - Plan: - Schedule a follow-up appointment in 4 weeks to reassess depression, anxiety, sleep disturbance, ADHD/OCD traits, and shoulder pain. - If the cost of Rexulti is prohibitive, the patient may return for additional samples. - Consider discussing Transcranial Magnetic Stimulation (TMS) as a potential treatment option if depression worsens. 06/11/2024 Encounter for screening for depression (ICD-10 - Z13.31) 01/02/2024 Major depressive disorder, recurrent severe without psychotic features (ICD-10 - F33.2) Learning About Depression material was published Insomnia and Sleep Disturbances - Assessment: Patient reports difficulty falling asleep and staying asleep, with recent worsening of symptoms. Currently taking clonazepam, ropinirole, Flexeril, and Lyrica for sleep issues. Patient reports only getting 1-3 hours of sleep some nights and feeling extremely fatigued. - Plan: - Encourage the patient to contact their sleep specialist for a follow-up and discuss medication adjustments. - Consider re-evaluating the use of CPAP. - Address any potential anxiety contributing to sleep disturbances. Anxiety - Assessment: Patient reports feeling anxious and questions whether sleep disturbances are contributing to increased anxiety. Currently taking clonazepam for myoclonus spasm, which also helps with anxiety. Patient experiences jitteriness and incoherence when trying to sleep. - Plan: - Monitor anxiety levels and consider adjusting medications if necessary. - Encourage the patient to discuss their anxiety with their primary care physician and sleep specialist. Depression - Assessment: Patient is currently on Lyrica 75 mg three times a day and reports increased depression when the dose was previously reduced. Also taking venlafaxine 75 mg, bupropion XL 300 mg, and Rexulti 0.5 mg. Patient reports significant improvement in mood with Rexulti. - Plan: - Continue current medications and monitor for any changes in depressive symptoms. - Schedule a follow-up appointment in two months to reassess the patient's mental health status. Medication Management - Assessment: Patient requests a refill of lorazepam and reports improvement in sleep when taking it in combination with other medications. Patient is also using Rexulti samples provided by the clinic. Patient has been experimenting with nighttime medications to isolate which ones are most effective. - Plan: - Refill lorazepam prescription and instruct the patient to discuss its use with their primary care physician. - Refill venlafaxine 75 mg, bupropion XL 300 mg, and Rexulti 0.5 mg for 30 days. - Continue to provide Rexulti samples as needed. Surgical Concerns - Assessment: Patient reports several surgeries are needed but are currently impossible due to inability to lay down and a previous reaction to anesthesia (ketamine). Patient experiences symptoms similar to their previous anesthesia reaction on a daily basis. - Plan: - Encourage the patient to address sleep disturbances and anxiety with their sleep specialist and primary care physician before considering surgery. - Recommend discussing anesthesia concerns with the surgical team to explore alternative options. 06/11/2024 INNA (obstructive sleep apnea) (ICD-10 - G47.33) 11/07/2023 Chronic kidney disease (CKD) stage G3a/A1, moderately decreased glomerular filtration rate (GFR) between 45-59 mL/min/1.73 square meter and albuminuria creatinine ratio less than 30 mg/g (ICD-10 - N18.31) Major Depressive Disorder - Assessment: Patient reports worsening depression since reducing Lyrica dose. Current medications are Venlafaxine 75 mg and Bupropion 300 mg. PHQ-9 score is 18 (severe depression). Patient has failed Paxil and Trazodone in the past. Depression has definitely increased over the past 2.5 weeks. Patient previously tried TMS in 2018 or 2019 with some benefit. - Plan: Consider augmenting with a different medication without changing Venlafaxine and Bupropion while patient decides how to come off Lyrica. Re-evaluate in one month. If depression is still severe, consider TMS as a treatment option. Anxiety - Assessment: Patient reports increased anxiety since reducing Lyrica dose and with the prospect of frequent TMS visits. - Plan: Address anxiety in conjunction with depression treatment. Monitor response to medication adjustments and consider TMS if necessary. Fibromyalgia - Assessment: Patient has been on Lyrica for 20 years for fibromyalgia pain management. Patient reports increased pain since reducing Lyrica dose. - Plan: Discuss the risks and benefits of continuing or tapering off Lyrica. If patient decides to come off Lyrica, taper the dose slowly to minimize side effects and prevent symptom recurrence. Myoclonus - Assessment: Patient reports no improvement in myoclonus despite taking melatonin, magnesium, restless leg medication, muscle relaxer, lorazepam, and Klonopin. Myoclonus affects sleep and causes anxiety about going to bed. - Plan: Review patient's medications for potential interactions contributing to myoclonus. Consider alternative treatments or medication adjustments to address myoclonus. Weight Gain - Assessment: Patient reports gaining 12 pounds in three months since starting Klonopin. Patient reports increased appetite. - Plan: Monitor weight and consider adjusting medications if weight gain continues or becomes a concern for the patient. ADHD - Assessment: Patient inquires about the potential contribution of ADHD to depression and anxiety. Patient is not taking prescribed ADHD medication due to cost. - Plan: Assess patient for ADHD symptoms and discuss the potential benefits and risks of treating ADHD in conjunction with depression and anxiety management. Blood Pressure - Assessment: Patient reports church history teacher took them off blood pressure medication due to low blood pressure, but blood pressure was elevated today. Patient is on Toprol for heart flutters. - Plan: Monitor blood pressure and communicate with the patient's church history teacher to ensure appropriate management of blood pressure and potential medication interactions. 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 PHQ-9 score has decreased to 10, indicating a shift from severe to mild-moderate depression. - Plan: - Continue Rexulti at the current dose. - Provide additional samples for the patient and send a prescription to [facility]. - Reassess in 4 weeks or sooner if symptoms worsen. Anxiety - Assessment: Patient still experiences some anxiety but acknowledges living in a stressful environment. - Plan: - Monitor anxiety levels during follow-up visits. - Consider adjusting treatment if anxiety worsens or interferes with daily functioning. Sleep Disturbance - Assessment: Patient reports difficulty sleeping, with frequent awakenings and restlessness. Sleep issues may be contributing to feelings of exhaustion and pressure in the head. Patient mentions being up at least 10 times during the night and feeling restless. - Plan: - Encourage the patient to try melatonin and theanine combination, as it seemed to help in the past. - Monitor sleep quality during follow-up visits and consider further evaluation or treatment if sleep issues persist. Attention-Defic it/Hyperactivit y Disorder (ADHD) and Obsessive-Compu lsive Disorder (OCD) Traits - Assessment: Patient reports difficulty concentrating and noticing minor details that cause distress. Patient describes OCD-like symptoms, such as being bothered by misaligned objects and leaving tasks undone if they can't be done perfectly. - Plan: - Continue to monitor ADHD and OCD traits during follow-up visits. - Consider further evaluation or treatment if these symptoms interfere with daily functioning or cause significant distress. Shoulder Pain - Assessment: Patient reports shoulder pain, possibly due to torn rotator cuffs. The pain affects sleep and makes it difficult to wear the CPAP mask. - Plan: - Encourage the patient to seek further evaluation for shoulder pain, as it may be contributing to sleep disturbance and overall discomfort. Follow-up - Plan: - Schedule a follow-up appointment in 4 weeks to reassess depression, anxiety, sleep disturbance, ADHD/OCD traits, and shoulder pain. - If the cost of Rexulti is prohibitive, the patient may return for additional samples. - Consider discussing Transcranial Magnetic Stimulation (TMS) as a potential treatment option if depression worsens. 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 Currently taking clonazepam, ropinirole, Flexeril, and Lyrica for sleep issues. Patient reports only getting 1-3 hours of sleep some nights and feeling extremely fatigued. - Plan: - Encourage the patient to contact their sleep specialist for a follow-up and discuss medication adjustments. - Consider re-evaluating the use of CPAP. - Address any potential anxiety contributing to sleep disturbances. Anxiety - Assessment: Patient reports feeling anxious and questions whether sleep disturbances are contributing to increased anxiety. Currently taking clonazepam for myoclonus spasm, which also helps with anxiety. Patient experiences jitteriness and incoherence when trying to sleep. - Plan: - Monitor anxiety levels and consider adjusting medications if necessary. - Encourage the patient to discuss their anxiety with their primary care physician and sleep specialist. Depression - Assessment: Patient is currently on Lyrica 75 mg three times a day and reports increased depression when the dose was previously reduced. Also taking venlafaxine 75 mg, bupropion XL 300 mg, and Rexulti 0.5 mg. Patient reports significant improvement in mood with Rexulti. - Plan: - Continue current medications and monitor for any changes in depressive symptoms. - Schedule a follow-up appointment in two months to reassess the patient's mental health status. Medication Management - Assessment: Patient requests a refill of lorazepam and reports improvement in sleep when taking it in combination with other medications. Patient is also using Rexulti samples provided by the clinic. Patient has been experimenting with nighttime medications to isolate which ones are most effective. - Plan: - Refill lorazepam prescription and instruct the patient to discuss its use with their primary care physician. - Refill venlafaxine 75 mg, bupropion XL 300 mg, and Rexulti 0.5 mg for 30 days. - Continue to provide Rexulti samples as needed. Surgical Concerns - Assessment: Patient reports several surgeries are needed but are currently impossible due to inability to lay down and a previous reaction to anesthesia (ketamine). Patient experiences symptoms similar to their previous anesthesia reaction on a daily basis. - Plan: - Encourage the patient to address sleep disturbances and anxiety with their sleep specialist and primary care physician before considering surgery. - Recommend discussing anesthesia concerns with the surgical team to explore alternative options. 01/02/2024 Chronic kidney disease (CKD) stage G3a/A1, moderately decreased glomerular filtration rate (GFR) between 45-59 mL/min/1.73 square meter and albuminuria creatinine ratio less than 30 mg/g (ICD-10 - N18.31) Insomnia and Sleep Disturbances - Assessment: Patient reports difficulty falling asleep and staying asleep, with recent worsening of symptoms. Currently taking clonazepam, ropinirole, Flexeril, and Lyrica for sleep issues. Patient reports only getting 1-3 hours of sleep some nights and feeling extremely fatigued. - Plan: - Encourage the patient to contact their sleep specialist for a follow-up and discuss medication adjustments. - Consider re-evaluating the use of CPAP. - Address any potential anxiety contributing to sleep disturbances. Anxiety - Assessment: Patient reports feeling anxious and questions whether sleep disturbances are contributing to increased anxiety. Currently taking clonazepam for myoclonus spasm, which also helps with anxiety. Patient experiences jitteriness and incoherence when trying to sleep. - Plan: - Monitor anxiety levels and consider adjusting medications if necessary. - Encourage the patient to discuss their anxiety with their primary care physician and sleep specialist. Depression - Assessment: Patient is currently on Lyrica 75 mg three times a day and reports increased depression when the dose was previously reduced. Also taking venlafaxine 75 mg, bupropion XL 300 mg, and Rexulti 0.5 mg. Patient reports significant improvement in mood with Rexulti. - Plan: - Continue current medications and monitor for any changes in depressive symptoms. - Schedule a follow-up appointment in two months to reassess the patient's mental health status. Medication Management - Assessment: Patient requests a refill of lorazepam and reports improvement in sleep when taking it in combination with other medications. Patient is also using Rexulti samples provided by the clinic. Patient has been experimenting with nighttime medications to isolate which ones are most effective. - Plan: - Refill lorazepam prescription and instruct the patient to discuss its use with their primary care physician. - Refill venlafaxine 75 mg, bupropion XL 300 mg, and Rexulti 0.5 mg for 30 days. - Continue to provide Rexulti samples as needed. Surgical Concerns - Assessment: Patient reports several surgeries are needed but are currently impossible due to inability to lay down and a previous reaction to anesthesia (ketamine). Patient experiences symptoms similar to their previous anesthesia reaction on a daily basis. - Plan: - Encourage the patient to address sleep disturbances and anxiety with their sleep specialist and primary care physician before considering surgery. - Recommend discussing anesthesia concerns with the surgical team to explore alternative options. 12/05/2023 Chronic kidney disease (CKD) stage G3a/A1, moderately decreased glomerular filtration rate (GFR) between 45-59 mL/min/1.73 square meter and albuminuria creatinine ratio less than 30 mg/g (ICD-10 - N18.31) Depression - Assessment: Patient reports improvement in depressive symptoms with the use of Rexulti. PHQ-9 score has decreased to 10, indicating a shift from severe to mild-moderate depression. - Plan: - Continue Rexulti at the current dose. - Provide additional samples for the patient and send a prescription to [facility]. - Reassess in 4 weeks or sooner if symptoms worsen. Anxiety - Assessment: Patient still experiences some anxiety but acknowledges living in a stressful environment. - Plan: - Monitor anxiety levels during follow-up visits. - Consider adjusting treatment if anxiety worsens or interferes with daily functioning. Sleep Disturbance - Assessment: Patient reports difficulty sleeping, with frequent awakenings and restlessness. Sleep issues may be contributing to feelings of exhaustion and pressure in the head. Patient mentions being up at least 10 times during the night and feeling restless. - Plan: - Encourage the patient to try melatonin and theanine combination, as it seemed to help in the past. - Monitor sleep quality during follow-up visits and consider further evaluation or treatment if sleep issues persist. Attention-Defic it/Hyperactivit y Disorder (ADHD) and Obsessive-Compu lsive Disorder (OCD) Traits - Assessment: Patient reports difficulty concentrating and noticing minor details that cause distress. Patient describes OCD-like symptoms, such as being bothered by misaligned objects and leaving tasks undone if they can't be done perfectly. - Plan: - Continue to monitor ADHD and OCD traits during follow-up visits. - Consider further evaluation or treatment if these symptoms interfere with daily functioning or cause significant distress. Shoulder Pain - Assessment: Patient reports shoulder pain, possibly due to torn rotator cuffs. The pain affects sleep and makes it difficult to wear the CPAP mask. - Plan: - Encourage the patient to seek further evaluation for shoulder pain, as it may be contributing to sleep disturbance and overall discomfort. Follow-up - Plan: - Schedule a follow-up appointment in 4 weeks to reassess depression, anxiety, sleep disturbance, ADHD/OCD traits, and shoulder pain. - If the cost of Rexulti is prohibitive, the patient may return for additional samples. - Consider discussing Transcranial Magnetic Stimulation (TMS) as a potential treatment option if depression worsens. 11/07/2023 Bradycardia (ICD-10 - R00.1) Major Depressive Disorder - Assessment: Patient reports worsening depression since reducing Lyrica dose. Current medications are Venlafaxine 75 mg and Bupropion 300 mg. PHQ-9 score is 18 (severe depression). Patient has failed Paxil and Trazodone in the past. Depression has definitely increased over the past 2.5 weeks. Patient previously tried TMS in 2018 or 2019 with some benefit. - Plan: Consider augmenting with a different medication without changing Venlafaxine and Bupropion while patient decides how to come off Lyrica. Re-evaluate in one month. If depression is still severe, consider TMS as a treatment option. Anxiety - Assessment: Patient reports increased anxiety since reducing Lyrica dose and with the prospect of frequent TMS visits. - Plan: Address anxiety in conjunction with depression treatment. Monitor response to medication adjustments and consider TMS if necessary. Fibromyalgia - Assessment: Patient has been on Lyrica for 20 years for fibromyalgia pain management. Patient reports increased pain since reducing Lyrica dose. - Plan: Discuss the risks and benefits of continuing or tapering off Lyrica. If patient decides to come off Lyrica, taper the dose slowly to minimize side effects and prevent symptom recurrence. Myoclonus - Assessment: Patient reports no improvement in myoclonus despite taking melatonin, magnesium, restless leg medication, muscle relaxer, lorazepam, and Klonopin. Myoclonus affects sleep and causes anxiety about going to bed. - Plan: Review patient's medications for potential interactions contributing to myoclonus. Consider alternative treatments or medication adjustments to address myoclonus. Weight Gain - Assessment: Patient reports gaining 12 pounds in three months since starting Klonopin. Patient reports increased appetite. - Plan: Monitor weight and consider adjusting medications if weight gain continues or becomes a concern for the patient. ADHD - Assessment: Patient inquires about the potential contribution of ADHD to depression and anxiety. Patient is not taking prescribed ADHD medication due to cost. - Plan: Assess patient for ADHD symptoms and discuss the potential benefits and risks of treating ADHD in conjunction with depression and anxiety management. Blood Pressure - Assessment: Patient reports church history teacher took them off blood pressure medication due to low blood pressure, but blood pressure was elevated today. Patient is on Toprol for heart flutters. - Plan: Monitor blood pressure and communicate with the patient's church history teacher to ensure appropriate management of blood pressure and potential medication interactions. 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 PHQ-9 score has decreased to 10, indicating a shift from severe to mild-moderate depression. - Plan: - Continue Rexulti at the current dose. - Provide additional samples for the patient and send a prescription to [facility]. - Reassess in 4 weeks or sooner if symptoms worsen. Anxiety - Assessment: Patient still experiences some anxiety but acknowledges living in a stressful environment. - Plan: - Monitor anxiety levels during follow-up visits. - Consider adjusting treatment if anxiety worsens or interferes with daily functioning. Sleep Disturbance - Assessment: Patient reports difficulty sleeping, with frequent awakenings and restlessness. Sleep issues may be contributing to feelings of exhaustion and pressure in the head. Patient mentions being up at least 10 times during the night and feeling restless. - Plan: - Encourage the patient to try melatonin and theanine combination, as it seemed to help in the past. - Monitor sleep quality during follow-up visits and consider further evaluation or treatment if sleep issues persist. Attention-Defic it/Hyperactivit y Disorder (ADHD) and Obsessive-Compu lsive Disorder (OCD) Traits - Assessment: Patient reports difficulty concentrating and noticing minor details that cause distress. Patient describes OCD-like symptoms, such as being bothered by misaligned objects and leaving tasks undone if they can't be done perfectly. - Plan: - Continue to monitor ADHD and OCD traits during follow-up visits. - Consider further evaluation or treatment if these symptoms interfere with daily functioning or cause significant distress. Shoulder Pain - Assessment: Patient reports shoulder pain, possibly due to torn rotator cuffs. The pain affects sleep and makes it difficult to wear the CPAP mask. - Plan: - Encourage the patient to seek further evaluation for shoulder pain, as it may be contributing to sleep disturbance and overall discomfort. Follow-up - Plan: - Schedule a follow-up appointment in 4 weeks to reassess depression, anxiety, sleep disturbance, ADHD/OCD traits, and shoulder pain. - If the cost of Rexulti is prohibitive, the patient may return for additional samples. - Consider discussing Transcranial Magnetic Stimulation (TMS) as a potential treatment option if depression worsens. 01/02/2024 Bradycardia (ICD-10 - R00.1) Insomnia and Sleep Disturbances - Assessment: Patient reports difficulty falling asleep and staying asleep, with recent worsening of symptoms. Currently taking clonazepam, ropinirole, Flexeril, and Lyrica for sleep issues. Patient reports only getting 1-3 hours of sleep some nights and feeling extremely fatigued. - Plan: - Encourage the patient to contact their sleep specialist for a follow-up and discuss medication adjustments. - Consider re-evaluating the use of CPAP. - Address any potential anxiety contributing to sleep disturbances. Anxiety - Assessment: Patient reports feeling anxious and questions whether sleep disturbances are contributing to increased anxiety. Currently taking clonazepam for myoclonus spasm, which also helps with anxiety. Patient experiences jitteriness and incoherence when trying to sleep. - Plan: - Monitor anxiety levels and consider adjusting medications if necessary. - Encourage the patient to discuss their anxiety with their primary care physician and sleep specialist. Depression - Assessment: Patient is currently on Lyrica 75 mg three times a day and reports increased depression when the dose was previously reduced. Also taking venlafaxine 75 mg, bupropion XL 300 mg, and Rexulti 0.5 mg. Patient reports significant improvement in mood with Rexulti. - Plan: - Continue current medications and monitor for any changes in depressive symptoms. - Schedule a follow-up appointment in two months to reassess the patient's mental health status. Medication Management - Assessment: Patient requests a refill of lorazepam and reports improvement in sleep when taking it in combination with other medications. Patient is also using Rexulti samples provided by the clinic. Patient has been experimenting with nighttime medications to isolate which ones are most effective. - Plan: - Refill lorazepam prescription and instruct the patient to discuss its use with their primary care physician. - Refill venlafaxine 75 mg, bupropion XL 300 mg, and Rexulti 0.5 mg for 30 days. - Continue to provide Rexulti samples as needed. Surgical Concerns - Assessment: Patient reports several surgeries are needed but are currently impossible due to inability to lay down and a previous reaction to anesthesia (ketamine). Patient experiences symptoms similar to their previous anesthesia reaction on a daily basis. - Plan: - Encourage the patient to address sleep disturbances and anxiety with their sleep specialist and primary care physician before considering surgery. - Recommend discussing anesthesia concerns with the surgical team to explore alternative options. 06/11/2024 Bradycardia (ICD-10 - R00.1) 06/11/2024 King Monte, a female patient with a history of sleep disturbances and chronic pain, presents for follow-up after 6 months, reporting improvement in sleep and pain management. Sleep Disturbance Assessment: Patient reports significant improvement in sleep disturbances over the past few months. Previously experienced severe sleep disruption during a cruise in mid-February, including sleepwalking, jerking movements, and a fall resulting in minor head trauma. Since returning home, sleep has markedly improved with only occasional jerking episodes. The cause of this improvement is unclear, but the patient humorously attributes it to the minor head injury sustained during the cruise. Plan: - Continue current sleep management approach - Monitor for any recurrence of sleep disturbances - Patient to follow up if sleep issues worsen Chronic Pain Assessment: Patient reports improved pain management with the reintroduction of Lyrica at full dosage. The medication has not only helped with pain control but has also had a positive impact on the patient's mood, particularly in reducing depressive symptoms. Plan: - Continue Lyrica at current dosage - Monitor for ongoing efficacy and side effects - Discuss any changes in pain levels or mood at follow-up appointments Anxiety Assessment: Patient continues to experience anxiety, particularly in group settings. This suggests persistent social anxiety despite improvements in other areas of mental health. Plan: - Continue current anxiety management strategies - Consider exploring additional coping mechanisms for social situations - Encourage patient to report any changes in anxiety levels Medication Management Assessment: Patient has started Ozempic (semaglutide) at the end of February, in addition to Lyrica. Both medications are reported to be expensive, but the patient has reached their annual prescription cost maximum, making ongoing treatment more affordable. Plan: - Continue current medication regimen including Lyrica and Ozempic - Monitor for efficacy and side effects of both medications - Ensure patient understands insurance coverage and any potential changes in medication costs Disclaimer: This note has been transcribed using speech recognition software and serves as a reflection of the patient's visit. While efforts have been made to ensure accuracy, there may be errors, including senior gl accountant inaccuracies and misspellings of medication names. This document should not be considered a verbatim record, and any discrepancies should be verified with the provider. Plan Of Treatment Next Appt Details Provider Name:Shamir Kendall , 09/17/2024 03:45:00 PM, [address], [address], [place], [address], Insurance Providers Payer Name Payer Address Payer Phone Subscriber Number Group Number Insured Name Patient Relationship to Insured Coverage Start Date Coverage End Date [employer] o [address] [place] [phone] [id number] CHAIM Shah Self - patient is the insured Medical (General) History Medical History History ICD Code Problems: Abdominal pain Anxiety state Attention deficit hyperactivity disorder Attention deficit hyperactivity disorder , predominantly inattentive type Chronic depression Crohn's disease Diabetes mellitus Essential hypertension Fever Finger joint painful on movement Generalized anxiety disorder Hypothyroidism Irritable bowel syndrome Moderate recurrent major depression Osteoarthritis Pain in limb Primary insomnia Pure hypercholesterolemia Restless legs Severe recurrent major depression withou t psychotic features Sick sinus syndrome Small bowel obstruction , Surgical History Surgery Date(Month/Year) Heart surgery pacemaker Hysterectomy (80309) 02/28/1999 Appendectomy (55191) 02/28/1999 Heart surgery 02/28/2003 Heart surgery 02/28/2018 Removal of gallbladder (06484) 6 Heart surgery 07/30/2003 Any surgical history 09/06/2022 Removal of gallbladder (61347) 6 Appendectomy (07258) 12/30/1987 Other 12/30/1987 Colectomy (73807) 12/30/1987
--- OUTSIDE RECORDS SUMMARY | 2024-09-14 10:12 | XMS_ITS | Clinical Summary ---
Author Organization [place] [address] [facility] Address [address] [place] [address] Care Team Providers Care Grind Operator Name Role Phone Richy Nur MD Primary Care Provider [phone] Jack Craig MD, Mo P. Unavailable [phone] Allergies Active Allergy Reactions Criticality Noted Date Comments Amitriptyline Other (See comments) Low 03/20/2018 causes jerking Shaking Cefaclor Hives,Urticaria Medium 10/11/2007 MD Jennifer kebede'haresh use of ceftriaxone - Choco IzquierdoPharmD 03-08-19 [...] 03/08/2019 Assessment & Plan (03/09/2019 2:48 PM BIOINFORMATICS SPECIALIST): Home regimen of Wellbutrin 300 mg qday, [...] illness Assessment & Plan (03/08/2019 1:26 PM BIOINFORMATICS SPECIALIST): Home regimen of Wellbutrin 300 mg qday, Paxil 20 mg qday, Lyrica 150 mg TID, and PRN hydrocordone-acetaminophen -Holding Wellbutrin and paxil while on Linezolid due to risk of serotonin syndrome, will resume once off antibiotic. Assessment & Plan (03/08/2019 1:29 AM BIOINFORMATICS SPECIALIST): Home regimen of Wellbutrin 300 mg qday, Paxil 20 mg qday, Lyrica 150 mg TID, and PRN hydrocordone-acetaminophen -Holding Wellbutrin and paxil while on Linezolid due to risk of serotonin syndrome, will resume once off antibiotic Hyponatremia 03/08/2019 Assessment & Plan (03/11/2019 11:14 AM BIOINFORMATICS SPECIALIST): - Mild hyponatremia of 133 in the setting of hyperglycemia, corrected Na is normal at 135. CTM - improved Assessment & Plan (03/10/2019 2:04 PM BIOINFORMATICS SPECIALIST): - Mild hyponatremia of 133 in the setting of hyperglycemia, corrected Na is normal at 135. CTM - improved Assessment & Plan (03/09/2019 2:47 PM BIOINFORMATICS SPECIALIST): - Mild hyponatremia of 133 in the setting of hyperglycemia, corrected Na is normal at 135. CTM - will obtain BMP tonight Assessment & Plan (03/08/2019 1:26 PM BIOINFORMATICS SPECIALIST): Mild hyponatremia of 133 in the setting of hyperglycemia, corrected Na is normal at 135. CTM Assessment & Plan (03/08/2019 1:30 AM BIOINFORMATICS SPECIALIST): Mild hyponatremia of 133 in the setting of hyperglycemia, corrected Na is normal at 135 Acute pyelonephritis 03/08/2019 Assessment & Plan (03/11/2019 11:14 AM BIOINFORMATICS SPECIALIST): - delayed improvement, fever curve improved and resolved, symptomatically improved - plan d/c home to complete 10 days total therapy with cipro - suspect viral component that led to fevers with delayed improvement given stable clinically and labs - f/u Dr. Nur as outpt Assessment & Plan (03/10/2019 2:04 PM BIOINFORMATICS SPECIALIST): - delayed improvement, fever curve improving, and [...] soon Assessment & Plan (03/09/2019 2:46 PM BIOINFORMATICS SPECIALIST): - delayed improvement but afebrile thus far [...] fever Assessment & Plan (03/08/2019 1:30 PM BIOINFORMATICS SPECIALIST): Presenting with severe fevers to 39.8 C, [...] fevers Assessment & Plan (03/08/2019 1:29 AM BIOINFORMATICS SPECIALIST): Presenting with severe fevers to 39.8 C, [...] NSAIDs) and continue PRN tylenol Kidney lesion, ho-chunk, left 03/08/2019 Assessment & Plan (03/08/2019 1:32 PM BIOINFORMATICS SPECIALIST): CT scan with small indeterminate density lesion in left kidney, likely benign hyperdense cyst -Recommended to correlate with non-urgent renal US, defer to outpatient Assessment & Plan (03/08/2019 1:31 AM BIOINFORMATICS SPECIALIST): CT scan with small indeterminate density lesion in left kidney, likely benign hyperdense cyst -Recommended to correlate with non-urgent renal US, defer to outpatient Chronic kidney disease (CKD) stage G3a/A1, moderately decreased glomerular filtration rate (GFR) between 45-59 mL/min/1.73 square meter and albuminuria creatinine ratio less than 30 mg/g 03/08/2019 Assessment & Plan (05/05/2021 3:14 PM BIOINFORMATICS SPECIALIST): Labs per renal. Assessment & Plan (03/09/2019 2:48 PM BIOINFORMATICS SPECIALIST): - stage 3, Cr at baseline 1.1-1.3 Assessment & Plan (03/08/2019 1:25 PM BIOINFORMATICS SPECIALIST): Mild CKD stage 3 at baseline, Cr 1.0-1.20 -Cr 1.18 now 1.31. renally dose meds - continue IVF, repeat bmp am labs Assessment & Plan (03/08/2019 1:33 AM BIOINFORMATICS SPECIALIST): Mild CKD stage 3 at baseline, Cr 1.0-1.20 -Cr 1.18 on admission, renally dose meds Nontraumatic complete tear of right rotator cuff 2018 Overview (2018): Added automatically from request for surgery [id number] Bradycardia 07/02/2013 Overview (06/02/2016): Bradycardia Hyperlipidemia 07/02/2013 Overview (06/04/2016): Hyperlipidemia Assessment & Plan (05/05/2021 3:12 PM BIOINFORMATICS SPECIALIST): LDL at goal. Keep an eye on the TG's; consider Vascepa if still elevated. Assessment & Plan (03/08/2019 1:28 PM BIOINFORMATICS SPECIALIST): Continue home atorvastatin 10 mg qday Assessment & Plan (03/08/2019 1:29 AM BIOINFORMATICS SPECIALIST): Continue home atorvastatin 10 mg qday Presence of cardiac pacemaker 07/02/2013 Overview (02/23/2023): Pacemaker Crohn's disease ([facility]/HCC) 07/02/2013 Overview (06/04/2016): Crohns disease Assessment & Plan (06/05/2024 2:24 PM CDT): Stable at this time Assessment & Plan (03/10/2019 2:04 PM BIOINFORMATICS SPECIALIST): - reports chronic loose stools from Crohns (on no meds), unlikely etiology of acute illness/fever - f/u GI as outpt Assessment & Plan (03/09/2019 2:47 PM BIOINFORMATICS SPECIALIST): - reports chronic loose stools from Crohns (on no meds), unlikely etiology of acute illness/fever - f/u GI as outpt Assessment & Plan (03/08/2019 1:28 PM BIOINFORMATICS SPECIALIST): Bowel movements at baseline, does not take any medications currently for Crohn's. No melena, BRB or current abdominal pain. -CTM Assessment & Plan (03/08/2019 1:26 AM BIOINFORMATICS SPECIALIST): Bowel movements at baseline, does not take any medications currently for Crohn's -CTM Essential hypertension 07/02/2013 Overview (06/04/2016): Hypertension Assessment & Plan (06/05/2024 2:24 PM CDT): BP at target Assessment & Plan (05/05/2021 3:13 PM BIOINFORMATICS SPECIALIST): At goal on current therapy. Assessment & Plan (03/08/2019 1:27 PM BIOINFORMATICS SPECIALIST): Hold lisinopril 2.5 mg qday with elevating Cr - continue metoprolol 50 mg BID Assessment & Plan (03/08/2019 1:29 AM BIOINFORMATICS SPECIALIST): Continue home lisinopril 2.5 mg qday and [...] GLP1a) Assessment & Plan (05/05/2021 3:14 PM BIOINFORMATICS SPECIALIST): A1c above goal. Add Farxiga to current regimen of metformin for glycemic and renal benefit. Explained possible side effects, including UTI's and yeast infections. Check BMP in 2 weeks after starting Farxiga. She will call to schedule an eye exam with her refinery operator crude unit. Assessment & Plan (03/11/2019 11:14 AM BIOINFORMATICS SPECIALIST): Home regimen of Metformin 500 mg TID and was previously on insulin - Holding metformin while inpatient. - continue low dose Lantus 5 units qday and low dose SSI. - QID accuchecks and diabetic diet - d/c back on home regimen Assessment & Plan (03/10/2019 2:04 PM BIOINFORMATICS SPECIALIST): Home regimen of Metformin 500 mg TID and was previously on insulin - Holding metformin while inpatient. - continue low dose Lantus 5 units qday and low dose SSI. - QID accuchecks and diabetic diet Assessment & Plan (03/09/2019 2:47 PM BIOINFORMATICS SPECIALIST): Home regimen of Metformin 500 mg TID and was previously on insulin - Holding metformin while inpatient. - continue low dose Lantus 5 units qday and low dose SSI. - QID accuchecks and diabetic diet Assessment & Plan (03/08/2019 1:26 PM BIOINFORMATICS SPECIALIST): Home regimen of Metformin 500 mg TID and was previously on insulin - Holding metformin while inpatient. - continue low dose Lantus 5 units qday and low dose SSI. - QID accuchecks and diabetic diet Assessment & Plan (03/08/2019 1:27 AM BIOINFORMATICS SPECIALIST): Home regimen of Metformin 500 mg TID and was previously on insulin -Holding metformin while inpatient. Will start low dose Lantus 5 units qday and low dose SSI -QID accuchecks and diabetic diet Sick sinus syndrome 10/11/2007 Encounters Date Type Department Care Team Description 09/06/2024 Telephone [facility] Orthopaedic Surgery [address] [place] [address] Anatoly Barragan MD 08/23/2024 Telephone [facility] Gastroenterology [address] [facility] 12th [place] [address] [place] [address] Mignon Gonzalez CMA Gi Pre Procedural Assessment 08/22/2024 3:30 PM CDT - 08/22/2024 4:00 PM CDT Surgery [facility] [address] [place] [address] Champ Galvin MD ESOPHAGOGASTRODUODE NOSCOPY/DW/TS 08/22/2024 2:44 PM CDT Anesthesia Event [facility] [address] [place] [address] Alo Guerrero MD 08/22/2024 1:19 PM CDT - 08/22/2024 3:30 PM CDT Hospital Encounter [facility] [address] [place] [address] Champ Galvin MD Discharge Disposition: Discharge to home or self care 08/20/2024 Telephone [facility] Specialty Services [address] [place] [address] Rebecca Arias RN 08/20/2024 Orders Only [facility] [address] [facility] [address] [place] [id number] Richy Nur MD Stomach pain (Primary Dx) 08/16/2024 4:00 PM CDT Office Visit [facility] Orthopaedic Surgery [address] [facility] 1st Floor [address] [place] [address] Anatoly Barragan MD Rotator cuff tear arthropathy of right shoulder (Primary Dx); Right shoulder pain, unspecified chronicity from Last 3 Months Immunizations Immunization Administration Dates Next Due Influenza, Quadrivalent, Genia l Culture-based MDCK, Antibiotic Free, Intramuscular 03/06/2018,03/06/2018 Influenza, Quadrivalent, Genia l Culture-based MDCK, Preservative Free, Antibiotic Free, Intramuscular 12/02/2019 Influenza, Quadrivalent, Spl it, Preservative Free, Intramuscular 02/18/2015,02/18/2015 Influenza, Trivalent, IM (MDV) 02/04/2014,2013 Pfizer SARS-CoV-2 Monovalent Vaccination (12+ Yrs) PURPLE 11/28/2020 Tdap 06/24/2013,06/24/2013 ZOSTER Recombinant 06/29/2022 Zoster, unspecified 10/29/2022 Surgical History Surgery Date Site/Laterality Comments OTHER SURGICAL HISTORY meniscal repair right knee SPINAL FUSION back fusion HYSTERECTOMY partial hysterectomy COLON SURGERY colon resection CHOLECYSTECTOMY ARTHROSCOPIC REPAIR ACL MEDIAL COLLATERAL LIGAMENT AND LATERAL COLLATERAL LIGAMENT REPAIR, KNEE BUNIONECTOMY CORRECTION HAMMER TOE SKIN GRAFT RHINOPLASTY INSERT / REPLACE / REMOVE PACEMAKER 2018 CARDIAC PACEMAKER PLACEMENT 02/28/2003 - 02/28/2004 Medical History Medical History Date Comments Motion sickness Hypertension Crohn's disease (HCC) GERD (gastroesophageal reflux disease) Gastroparesis Depression Fibromyalgia Kidney stones Type 2 diabetes mellitus (HCC) Fibroid Ovary removal, prophylactic Bradycardia CKD (chronic kidney disease) Allergic reaction caused by a drug ketamine caused jerking of extremities DDD (degenerative disc disease), cervical Family History Medical History Relation Name Comments Lung cancer Father Cancer -lung; C ause of : Cancer -lung Diabetes Mother Diabetes mellit us; Hypertension Mother Hypertension; Kidney failure Mother renal failure ; Other Sister No history of D iabetes mellitus; Relation Name Status Comments Father (Age 85) Mother Sister Social History Tobacco Use Types Packs/Day Years [...] on file Legal Sex Female 1:59 AM BIOINFORMATICS SPECIALIST Gender Identity Not on file Sexual Orientation Straight 07/09/2020 2: 51 PM CDT Occupation Industry Job Start Date Job End Date retired Not on file Not on file Not on file Obstetrics History Last Filed Vital Signs Vital Sign Reading [...] Description 11/02/2024 8:00 AM CDT Hospital Encounter [facility] Endoscopy at [facility] [address] [place] [address] Giovanni Martin MD [address] [place] [address] 11/02/2024 8:00 AM CDT - 11/02/2024 9:[address] [facility] Endoscopy at [address] [address] Giovanni Martin MD [address] [place] [address] COLONOSCOPY 11/07/2024 8:30 AM CDT Hospital [facility] Operating Room [address] [place] [address] Anatoly Barragan MD [address] [place] [address] 11/07/2024 8:30 AM CDT - 11/07/2024 10:[address] [facility] Operating Room [address] [place] [address] Anatoly Barragan MD [address] [address] RIGHT REVERSE TOTAL SHOULDER ARTHROPLASTY Scheduled Procedures Name Priority Associated Diagnoses Date/Ti me COLONOSCOPY Crohn's colitis, other complication (HCC) 11/02/2024 8:00 AM CDT ESOPHAGOGASTRODUODENOSCOPY Crohn's colitis, other complication (HCC) 11/02/2024 8:00 AM CDT ARTHROPLASTY SHOULDER - REVE RSE TOTAL Rotator cuff tear arthropathy of right shoulder 11/07/2024 8:30 AM CDT COLONOSCOPY Open Access Crohn's colitis, other complication (HCC) Health Maintenance Due Date Last Done Comments Albumin Creatinine Ratio, Urine 1960 Depression Screening 1960 Hepatitis C Screening 1960 Dilated Eye Exam 1960 Foot Exam 1960 Hepatitis B Screening 1978 Regular Well Visit/Exam 18-64 1978 eGFR 07/16/2022 07/16/2021, 07/15/2020 DTaP/Tdap/Td Vaccine (3 - Td or Tdap) 06/25/2023 06/24/2013, 06/24/2013 Covid-19 Vaccine (4 - 2023-2 5 season) 2023 11/28/2020, 05/20/2020, 04/29/2020 Colon Cancer Screening-Colonoscopy 04/01/2024 Breast Cancer Screening-Mammogram 05/17/2024 05/18/2023, 10/19/2021, 03/15/2020 Lipid Panel 10/17/2024 10/18/2023, 03/02, 12/28/2021, Additional history exists Influenza Vaccine (#1) 2024 , 03/06/2018, 03/06/2018, Additional history exists Hemoglobin A1C 12/05/2024 06/05/2024, 08/2024, 10/18/2023, Additional history exists Pneumococcal vaccine <65 Completed 06/29/2022 Zoster Vaccine Completed 10/29/2022, 06/29/2022 Medical Devices Implanted Type Area School Teacher Device Identifier Shelf Expiration Date Model / Serial / Lot [employer]folio C.R.M. L301 Accolade Latitude Nxt Pacesafe Easyview 4.45x5.02cm 2 Chamber Is1 - [id number] Implanted:Qty: 1 on 03/20/2018 by Mo Santiago Jr., MD at [facility] [employer] C.[employer]M. 11/02/2018 L301 / / [employer] Ar-2324 Bcm Swivelock 4.75mm 24.5mm Self Punch Vent Shoulder [place] Suture - [id number] Implanted:Qty: 1 on 08/07/2018 by Mando Griffith MD at [facility] [employer] [id number] 03/30/2020 AR-[id number] M / / [id number] Procedures Procedure Name Priority Date/Time Associated Diagnosis [...] Female Attending MD: Champ Sierra M.D. Room: [facility] ENDOSCOPY ROOM 9 Note Status: Finalized Procedure: [...] passed under direct vision. The [id number] endoscope was introduced through the mouth, and [...] following this procedure please call my officeat [phone] to speak to my nurse. After hours and evenings please call [phone] and speak to theGI fellow cotton breeder. Please tell them that Generedid your procedure and that your were instructed tohave the fellow call me or the physician covering for meto discuss the management of your condition. If youhave an urgent problem, please [facility] and have the ER doctor call my office duringthe day or [facility] transfer ([phone]) center afterhours and weekends to arrange admission or transfer toour facility. - The outlined recommendations within this reportwere discussed with you following the procedure. Attending Participation: I personally performed the entire procedure. Electronically signed by Champ Sierra MD Champ Sierra M.D. 08/22/2024 3:09:43 PM . Number of Addenda: 0 Note Initiated On: 08/22/2024 2:47 PM us Champ Sierra MD ENDOSCOPY PROCEDURES Edited Result - Final * POCT glucose (08/22/2024 2:10 PM CDT) Glucose, POC 101 70 - 199 mg/dL Blood 08/22/2024 2:10 PM CDT 08/22/2024 2:10 PM CDT Champ Sierra MD LAB POCT ORDERABLES - DEVICE Final Result [facility] Department [place] [address] * (ABNORMAL) POCT hemoglobin A1c (06/05/2024 1:36 PM CDT) Hemoglobin A1C, POC 6.7 4.0 - 5.6 % Blood 06/05/2024 1:36 PM CDT Richy Nur MD POINT OF CARE TEST ORDERABLES Final Result * POCT lipid panel (10/18/2023 12:01 PM CDT) Cholesterol, POC 176 mg/dL HDL, POC 42 mg/dL Triglycerides, POC 312 mg/dL LDL Cholesterol POC 71 mg/dL Non-HDL Cholesterol, POC 134 mg/dL Cholesterol Total, POC 176 mg/dL Capillary blood 10/18/2023 1 2:01 PM CDT Richy Nur MD POINT OF CARE TEST ORDERABLES Final Result * (ABNORMAL) Comprehensive metabolic panel (07/16/2021 4:17 PM CDT) Glucose 131(H) 65 - 99 mg/dL [facility] [...] - 07/17/2021 10:10 AM CDT Performed at: - [facility] [place] [address] Chemical Laboratory Assistant: Luis Saucedo PhD, Phone: [phone] Richy Nur MD LAB BLOOD ORDERABLES Final Re sult [facility] - 01 * Screening Mammogram 2D Bilateral (03/15/2020) Anatomical Region Laterality Modality Breast Bilateral Mammography Narrative 03/15/2020 03/15/20 at [facility] Historical Provider IMG MAMMO PROCEDURES Fidelina l Result from Last 3 Months or Most Recently Relevant to Health Maintenance Insurance AETNA [facility] RAKEL REF AETNA MEDICARE GOLD AETNA MEDICARE GOLD AETNA MEDICARE GOLD Advance Directives For more information, please contact: [phone] * Full Code (Latest Code Status on File) Date Activated Date Inactivated Comments 08/22/2024 2:03 PM 08/22/2024 7:40 PM * Full Code Date Activated Date Inactivated Comments 03/08/2019 2:26 AM 03/11/2019 7:59 PM Care Teams Grind Operator Relationship Specialty Start Date End Date Richy Nur MD PCP - General 07/02/13 Mo Santiago Jr., MD [address] [place] [address] Consulting Physician Cardiovascular Disease 01/27/23
--- OUTSIDE RECORDS SUMMARY | 2024-09-14 10:12 | XMS_ITS ---
Author Organization [facility] Address [address] [place] [address] Care Team Providers Care Chief Projectionist Name Role Phone Adriano Raciel Unavailable [phone] Problems Problem Type SNOMED Code ICD Code Onset Dates Problem Status W/U Status Risk Notes Problem Chronic kidney disease, stage 3b (N18.32) Active confirmed Encounters Encounter Location Date Provider Diagnosis [facility] [address] [facility] [address] [place] [address] 08/01/2024 Raciel Oh Chronic kidney disea se, stage 3b N18.32 ; Essential (primary) hypertension I10 ; Obesity, unspecified E66.9 ; Other proteinuria R80.8 ; Type 2 diabetes mellitus with hyperglycemia E11.65 ; Secondary hyperparathyroidism, not elsewhere classified E21.1 ; Renal osteodystrophy N25.0 ; 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 ; Restless legs syndrome G25.81 and Abnormal results of liver function studies R94.5 Assessments Encounter Date Diagnosis (ICD Code) Assessment Notes Treatment Notes Treatment Clinical Notes Section Notes 08/01/2024 Chronic kidney disease, stage 3b (ICD-10 - N18.32) 08/01/2024 Essential (primary) hypertension (ICD-10 - I10) 08/01/2024 Obesity, unspecified (ICD-10 - E66.9) 08/01/2024 Other proteinuria (ICD-10 - R80.8) 08/01/2024 Type 2 diabetes mellitus with hyperglycemia (ICD-10 - E11.65) 08/01/2024 Secondary hyperparathyroidism , not elsewhere classified (ICD-10 - E21.1) 08/01/2024 Renal osteodystrophy (ICD-10 - N25.0) 08/01/2024 Myoclonus (ICD-10 - G25.3) 08/01/2024 Restless legs syndrome (ICD-10 - G25.81) 08/01/2024 Abnormal results of liver function studies (ICD-10 - R94.5) Plan Of Treatment Next Appt Details Provider Name:Raciel Adriano , 10/31/2024 02:00:00 PM, [address] [facility], [facility] [address], [place], [address], Progress Notes * CHAU MONTEOB:1960 ( 64 yo F)Acc No.[id number]:08/01/2024 Progress Notes Patient: CHAIM AL Provider: Marcell MACKAY MD, F.A.C.P, F.A.S.N. :1960 A ge:64 Y S ex:Female Date:08/01/2024 Address:[address] [place] [address] Subjective: * Chief Complaints: * * Medical History: Objective: * Vitals: Assessment: * Assessment: 1. C hronic kidney disease, stage 3b - N18.32 (Primary) 2 . E ssential (primary) hypertension - I10 3 . O besity, unspecified - E66.9 4 .?Other proteinuria - R80.8 5 . T ype 2 diabetes mellitus with hyperglycemia - E11.65 6 . S econdary hyperparathyroidism, not elsewhere classified - E21.1? 7. R enal osteodystrophy - N25.0 8 . M yoclonus - G25.3 ? 9 . R estless legs syndrome - G25.81 1 0. A bnormal results of liver function studies - R94.5 Plan: * Treatment: * Billing Information: * Visit Code: 89929 Office Visit, Est Pt., Level 4. * Procedure Codes: * Electronic signature of Prudencio Oh MD on 09/14/2024 at 10:11 AM CDT Sign off status: Pending * Provider: Marcell MACKAY MD, Jorge.Luann.C.P, F.A.S.N. Date: 0 08/01/2024 Generated for Printing/Faxing/eTransmitting on: 0 09/14/2024 10:11 AM CDT
--- OUTSIDE RECORDS SUMMARY | 2024-09-14 10:12 | XMS_ITS ---
Author Organization [facility] Address [address] [facility] [address] [facility] [address] [place] [address] Care Team Providers Care Director Industrial Name Role Phone AdrianoRosannaRaciel Unavailable [phone] Encounters Encounter Location Date Provider Diagnosis [facility] [address] [facility] [address] [place] [address] 04/25/2024 Raciel Oh Plan Of Treatment Next Appt Details Provider Name:Raciel Oh , 10/31/2024 02:00:00 PM, [address] [place] [address], [place], [address], Progress Notes * CHAU MONTEOB:1960 ( 64 yo F)Acc No.[id number]:04/25/2024 Progress Notes Patient: CHAIM AL Provider: Marcell MACKAY MD, Jorge.Luann.C.P, F.A.S.N. :1960 A ge:63 Y S ex:Female Date:04/25/2024 Address:[address] [place] [address] Subjective: * Chief Complaints: * * Medical History: Objective: * Vitals: Assessment: Plan: * Treatment: * Billing Information: * Visit Code: * Procedure Codes: * Electronic signature of Prudencio Oh MD on 09/14/2024 at 10:12 AM CDT Sign off status: Pending * Provider: Marcell MACKAY MD, Jorge.Luann.C.P, F.A.S.N. Date: 04/25/2024 Generated for Printing/Faxing/eTransmitting on: 09/14/2024 10:12 AM [facility]
--- OUTSIDE RECORDS SUMMARY | 2024-09-14 10:13 | XMS_ITS | Clinical Summary ---
Author Organization [facility] Address [address] [place] [phone] Phone Care Team Providers Care Oncology Specialist Name Role Phone Richy Nur MD Primary Care Provider [phone] Allergies Active Allergy Reactions Criticality Noted Date Comments Adhesive Itching Low 08/27/2022 redness Amitriptyline Other (See Comments) Low 03/20/2018 Shaking causes jerking Shaking Cefaclor Hives High 10/11/2007 MD Jennifer kebede'd use of ceftriaxone - Miguel A Hummel.PharmD 03-08-19 MD Jennifer kebede'd use of ceftriaxone - C Shaheed.PharmD 03-08-19 MD Jennifer kebede'd use of ceftriaxone - C Shaheed,.PharmD 03-08-19 Dayquil Sinus Pressure/Pain Itching Low 03/20/2018 Exenatide Microspheres Other (See Comments) 08/27/2022 gastroparesis Ketamine Other (See Comments) 08/27/2022 Jerky limbs, thrashing sat up straight Naproxen Diarrhea Medium 10/11/2007 Contraindicated /kidney Sulfa (Sulfonamide Antibiotics) Hives,Rash High 10/11/2007 Sulfamethoxazole-Trimet hoprim Rash Medium 10/11/2007 Vancomycin Hives High 08/30/2019 Medications lisinopriL 5 mg tablet Take 5 mg by mouth daily. Active pregabalin 150 mg capsule Take 150 mg by mouth 3 times daily. Only takes twice daily Active levothyroxine 75 mcg tablet Take 75 mcg by mouth daily in the morning. Active pantoprazole 40 mg tablet,delayed release Take 40 mg by mouth daily. Active atorvastatin 10 mg tablet Take 10 mg by mouth daily. Active metFORMIN 500 mg tablet Take 1,000 mg by mouth 2 times daily. Active PARoxetine 20 mg tablet Take 20 mg by mouth daily. Active buPROPion HCL XL 300 mg 24 hr tablet, extended release Take 300 mg by mouth daily in the morning. Active calcitrioL 0.25 mcg capsule Take 0.25 mcg by mouth daily at bedtime. Active cholecalciferol (vitamin D3) 1,250 mcg (50,000 unit) capsule Take 50,000 Units by mouth every 7 days. tuesday Active traZODone 100 mg tablet Take 100 mg by mouth daily at bedtime. Active sodium bicarbonate 650 mg tablet Take 1,300 mg by mouth 2 times daily. Active fluticasone propionate 50 mcg/actuation nasal spray,suspension Administer 2 Sprays in each nostril daily. Active LORazepam 0.5 mg tablet Take 0.5 mg by mouth 2 times daily as needed for Anxiety. Active dapagliflozin propanediol 5 mg tablet Take 5 mg by mouth daily. Active acetaminophen 500 mg tablet Take 1,000 mg by mouth every 6 hours as needed. Active rOPINIRole 0.5 mg tablet Take 1 mg by mouth daily at bedtime. Active metoprolol succinate (TOPROL XL) 25 mg Extended Release 24 hour tablet Starting 09/11/22, Take 1 Tablet (25 mg) by mouth daily. 30 Tablet 09/10/2022 4:23 PM CDT 3 Active docusate sodium (COLACE) 100 mg capsule Take 1 Capsule (100 mg) by mouth 2 times daily. 3 Active oxyCODONE (ROXICODONE) 10 mg tabletIndication s:HTN (hypertension), benign Take One-Half to One Tablet (5-10 mg) by mouth every 6 hours as needed for Break-Through Pain. Max Daily Amount: 40 mg 24 Tablet 09/10/2022 4:23 PM CDT 3 Active ondansetron (ZOFRAN ODT) 4 mg Tablet, Rapid Dissolve Dissolve 1 Tablet (4 mg) on top of tongue, then swallow with saliva every 8 hours as needed for Nausea/Vomiting 20 Tablet 09/10/2022 4:23 PM CDT 3 Active acetaminophen (TYLENOL) 500 mg tablet Take 2 Tablets (1,000 mg) by mouth every 6 hours as needed for Temperature or Other (See Comment) (headaches). 3 Active cyclobenzaprine (FLEXERIL) 5 mg Tablet Take 5 mg by mouth daily at bedtime. 4 Active empagliflozin (JARDIANCE) 10 mg tablet Take 10 mg by mouth daily. 4 Active Active Problems No known active problems Encounters Date Type Department Care Team Description 08/21/2024 External Device Data [facility] ABSTRACTION Provider, Abstract 07/19/2024 External Device Data [facility] ABSTRACTION Provider, Abstract 06/19/2024 External Device Data [facility] ABSTRACTION Provider, Abstract 06/19/2024 External Device Data [facility] ABSTRACTION Provider, Abstract from Last 3 Months Family History Medical History Relation Name Comments Stroke Father Heart Disease Mother Relation Name Status Comments Father Mother Social History Tobacco Use Types Packs/Day Years Used Date Smoking Tobacco: Never Smokeless Tobacco: Never Alcohol Use Standard Drinks/Week Comments Never 0 (1 standard drink = 0.6 oz pur e alcohol) Comments No Sex and Gender Information Value Date Recorded Sex Assigned at Not on file Legal Sex Female 10:06 AM CDT Gender Identity Not on file Sexual Orientation Not on file Last Filed Vital Signs Vital Sign Reading Time Taken Comments Blood Pressure 122/76 09/27/2023 1:03 PM CDT Pulse 62 09/27/2023 1:03 PM CDT Temperature 36.7 C (98.1 F) 09/27/2023 1:03 PM CDT Respiratory Rate 16 09/27/2023 1:03 PM CDT Oxygen Saturation 96% 09/27/2023 1:03 PM CDT Inhaled Oxygen Concentration - - Weight 100.2 kg (221 lb) 09/27/2023 1:03 PM CDT Height 167.6 cm (5' 6) 09/27/2023 1:03 PM CDT Body Mass Index 35.67 09/27/2023 1:03 PM CDT Plan of Treatment Upcoming Encounters Date Type Department Care Team (Late st Contact Info) Description 09/26/2024 2:30 PM CDT Office Visit [facility] [address] [facility] [address] [place] [address] Chris George MD [address] [facility] [address] [place] [phone] Health Maintenance Due Date Last Done Comments DIABETES ANNUAL FOOT EXAM 1978 DIABETES ANNUAL RETINAL EXAM 1978 DIABETES MICROALBUMIN ANNUAL SCREEN 1978 LDL CHOLESTEROL ANNUAL 1978 HPV/Cotest (21-29) 1981 CERVICAL CANCER SCREENING 1990 HPV/Cotest (30-65) 1990 PAP SMEAR 1990 COLORECTAL SCREENING 2005 Colorectal Cancer Screening 2005 FIT-DNA Q 3 years 2005 FIT/FOBT Q 1 year 2005 Flex Sig/CT Colonography Q 5 years 2005 RSV VACCINE (60+ or ) (1 - Risk 60-74 years 1-dose series) 2020 BREAST CANCER SCREENING 03/15/2021 03/15/2020 ZOSTER VACCINE (2 of 2) 08/24/2022 06/29/2022 DTAP/TDAP/TD VACCINES (2 - T d or Tdap) 06/25/2023 06/24/2013 COVID-19 Vaccine (2 - 2023-2 5 season) 2023 11/28/2020 DIABETES HBA1C Q 6 MONTHS 12/01/20232023, 09/06/2022, 06/29/2022 INFLUENZA VACCINE (#1) 2024 , 03/06/2018, 02/18/2015, Additional history exists Medical Devices Implanted Type Area Senior Strategy Manager Device Identifier Shelf Expiration Date Model / Serial / Lot Spacer Catalyft Pl 7mm Xpndble Long [id number] - Sna Implanted:Qty: 1 on 09/06/2022 by Chris George MD at [facility] Cage N/A: Spine Lumbar [employer] 05/16/2030 [id number] / NA / [id number] Hemostatic Surgiflo 8ml W/ Thrombin 2994 - [id number] Implanted:Qty: 1 on 09/06/2022 by Chris George MD at [facility] Hemostatic N/A: Spine Lumbar [employer] 04/28/2023 2994 / / [id number] Hemostatic Surgiflo 8ml W/ Thrombin 2994 - Sna Implanted:Qty: 1 on 09/06/2022 by Chris George MD at [facility] Hemostatic N/A: Spine Lumbar [employer] 10/29/2023 2994 / NA / [id number] Pacemaker Pacemaker [employer] JAIRON Description:CIED on chart. [employer] rep notified 09/03/22 of date and time of surgery for 09/06/22. Jamaal Cdh Ccm 4.73q460vu Crvd [id number] - Sna Implanted:Qty: 1 on 09/06/2022 by Chris George MD at [facility] Jamaal N/A: Spine Lumbar [employer] [id number] / NA / NA Description:LOAD [id number] ST ERILIZED [id number] Jamaal Cdh Ccm 4.23d25xr Crvd [id number] - Sna Implanted:Qty: 1 on 09/06/2022 by Chris George MD at [facility] Jamaal N/A: Spine Lumbar [employer] [id number] / NA / NA Description:LOAD [id number] ST ERILIZED [id number] Screw Solera Ma 6.5x40mm [id number] - Sna Implanted:Qty: 1 on 09/06/2022 by Chris George MD at [facility] Screw N/A: Spine Lumbar [employer] [id number] / NA / NA Description:LOAD [id number] ST ERILIZED [id number] Screw Solera Ma 6.5x45mm [id number] - Sna Implanted:Qty: 6 on 09/06/2022 by Chris George MD at [facility] N/A: Spine Lumbar [employer] [id number] / NA / NA Description:LOAD [id number] ST ERILIZED [id number] Screw Solera Breakoff [id number] - Sna Implanted:Qty: 9 on 09/06/2022 by Chris George MD at [facility] N/A: Spine Lumbar [employer] [id number] / NA / NA Description:LOAD [id number] ST ERILIZED [id number] Screw Solera Ma 5.5x45mm [id number] - Sna Implanted:Qty: 2 on 09/06/2022 by Chris George MD at [facility] Screw N/A: Spine Lumbar [employer] [id number] / NA / NA Description:LOAD [id number] ST ERILIZED [id number] Brimley Dbm 2.5x5cm [id number] - [id number] Implanted:Qty: 1 on 09/06/2022 by Chris George MD at [facility] Tissue N/A: Spine Lumbar [employer] 07/19/2025 [id number] / [id number] / Description:Requisition: [id number] Procedures Procedure Name Priority Date/Time Associated Diagnosis Comments HEMOGLOBIN A1C Routine 09/06/2022 2:43 PM CDT from Last 3 Months or Most Recently Relevant to Health Maintenance Results * (ABNORMAL) HEMOGLOBIN A1C (09/06/2022 2:43 PM CDT) HEMOGLOBIN A1C 8.5(H) <=5.6 % 09/06/2022 4:30 PM CDT [facility] EST. AVG GLUCOSE, A1C 197 mg/dL 09/06/2022 4:[address] [facility] Blood BLOOD SPECIMEN / Unknown Venipuncture / Unknown 09/06/2022 2:43 PM CDT 09/06/2022 2:51 PM CDT Narrative [facility] - 09/06/2022 4:30 PM CDT HGB A1C INTERPRETATION NORMAL: <5.7% PRE-DIABETES: 5.7 - 6.4% DIABETES: 6.5% OR GREATER Parish Garcia MD CHEMISTRY ORDERABLES Final Resul t [facility] CLIA# [id number] [place] [address] from Last 3 Months or Most Recently Relevant to Health Maintenance Insurance AETNA O [facility] RX AET[employer] Medicare Part D Advance Directives For more information, please contact: [phone] * Full Code (Latest Code Status on File) Date Activated Date Inactivated Comments 09/06/2022 5:52 AM 09/10/2022 7:02 PM Care Teams Oncology Specialist Relationship Specialty Start Date End Date Richy Nur MD [address] [facility] [address] [address] PCP - General Internal Medicine 08/27/22
== END 2024-09-14 10:07 | disposition home or self-care (01) ==
LOC: ANHIMG 10:07
PROVIDERS: PCP Internal Medicine; Visit Provider Obstetrics & Gynecology
DX: Z12.31 Encounter for screening mammogram for malignant neoplasm of breast (principal)
CPT/HCPCS: 77063; 77067